=== PATIENT | male | born 1935 | race Caucasian/White ===

== ENCOUNTER 2016-12-08 16:28 | Emergency (ER) | payer MEDICARE ==
[~2016-12-08 16:28] MED LIST: ACET325T51 PO; CHOL10008 PO; COU5 PO; CYAN250014 PO; CYAN500 SQ; LOPE2CAP PO; NITR0.4T SL; SMV40T PO; TEN50 PO
[2016-12-08 16:48] VITALS: BP 130/79; PULSE 83; RESP 18; O2SAT 98
[2016-12-08 17:31] LABS: BASOPHILS % (AUTO) 0.2 % (0-3); EOSINOPHILS % (AUTO) 0.7 % (0-5); MONOCYTES % (AUTO) 9.1 % (4-12); Mean Corpuscular Hemoglobin 32.3 pg (27.0-35.0); NEUTROPHILS % (AUTO) 80.2 % (40-74); Platelet Count 185 bil/L (150-400)
--- NOTE | 2016-12-08 18:23 | ED.REPORT ---
HPI-Extremity Problem Upper Date of Service Dec 08, 2016 ED Provider: Mark Soria MD Pt is an 81 year old male on Warfarin with a past medical history notable for hypertension, CAD, atrial fibrillation, and peripheral vascular disease s/p recent unspecified lower extremity vascular surgeries (11/2016) who presents to the ED with right hand bruising and edema onset three days ago. The patient also reports right hand pain and swelling as well as an episode of chills two evenings ago. He denies fever, numbness, decreased ROM, injury/trauma, or other symptoms. The patient was seen at Urgent Care two days ago and was subsequently discharged with cephalexin, which he has taken with no relief. Redness has not spread but has not resolved yet either. Nursing Notes Stated Complaint: INFECTED HAND AFTER SURGERY Chief Complaint: Extremity Trauma Nursing Notes Reviewed: Yes Allergies: Coded Allergies: atorvastatin (Verified Allergy, Unknown, 08/10/16) Scheduled Atenolol-Expunged Drug, Do Not Renew! (Atenolol-Expunged Drug, Do Not Renew!) 50 Mg Tablet 50 MG PO BID Cholecalciferol-Expunged Drug, Do Not Renew! (Vitamin D3-Expunged Drug, Do Not Renew!) 1,000 Unit Tab.chew 2,000 UNIT PO DAILY Cyanocobalamin (Vitamin B12) 500 Mcg Tablet 1,000 MCG SQ Monthly Loperamide (Loperamide) 2 Mg Capsule 2 MG PO DAILY Simvastatin-Expunged Drug, Choose New Med! (Simvastatin-Expunged Drug, Choose New Med!) 40 Mg Tablet 40 MG PO HS INPATIENT MAX DOSE 40 MG Warfarin Inactive Drug Do Not Use (Coumadin Inactive Drug Do Not Use) 5 Mg Tablet 5 MG PO WAR Scheduled PRN Acetaminophen (Acetaminophen) 325 Mg Tablet 325 MG PO Q4H PRN PRN For Fever Nitroglycerin SL (Nitrostat) 0.4 Mg Tab.subl 0.4 MG SL Q5MIN PRN PRN For Chest Pain Miscellaneous Medications Cyanocobalamin (Vitamin B-12) (Vitamin B12) 2,500 Mcg Tab.chew 2,500 MCG PO General Time Seen by MD: 18:21 Chief Complaint Other (Right Hand Bruising) Hx Obtained From: Patient Arrived By: Walk-in Onset Occurred: 3 days ago Symptom Duration: Since onset Location: : Hand right Quality: Painful Severity: Current: Moderate Severity: Maximum: Moderate Pertinent Negative: Relieved by nothing Immunizations: Unknown Recent Healthcare: Recent doctor visit Past Medical History Past Medical History 1. Hypertension. 2. Hyperlipidemia. 3. Atrial fib, on anticoagulation. 4. Coronary artery disease with [place] in 1990 in which he underwent PTCA, but did not have a stent at that time. 5. Tobacco abuse. 6. Peripheral vascular disease 7. Hernia Past Surgical History 1. Abdominal aortic aneurysm repair in 2003. 2. Angioplasty in 1990. 3. Tonsillectomy. 4. Kidney stone status post extraction on March [address] Bauman. 5. TURP. 6. Right breast cyst. 7. Skin cancer excision. 8. Left orchiectomy. 9. Unspecified vascular surgeries, bilateral lower extremities (11/2016) Smoking History Light Tobacco Smoker Social History Other Social History: Good social support Ambulatory Status Independent Review of Systems Review of Systems Note: + Right hand bruising - Decreased hand ROM Constitutional: Reports: Chills, Denies: Fever Musculoskeletal: Reports: Extremity pain (Right hand), Extremity swelling ( Right hand) Neurologic: Denies: Numbness Complete sys rev & neg: except as marked. Respiratory: Denies: Non-productive cough, Shortness of breath GI: Denies: Diarrhea, Vomiting Physical Exam Initial Vital Signs Vital Signs (First) Date Time Temp Pulse Resp B/P Pulse Ox O2 Delivery O2 Flow Rate FiO2 12/08/16 16:48 37 83 18 130/79 98 Room Air Initial VS: Reviewed Head / Eyes: Atraumatic, Normocephalic ENT: Conjunctiva normal, No scleral icterus Neurologic: Alert, Oriented Psychiatric: Mood/affect normal, Behavior normal General/Constitutional: Awake, Alert Respiratory / Chest: Breath sounds NL, Breath sounds = bilat, No respiratory distress Cardiovascular: Heart rate NL, Regular rhythm, Heart sounds NL, No gallop, No murmurs, No rubs Upper Extremity / MS: Neurologic intact, Vascular intact (Good radial pulses right hand) Left upper extremity normal Right forearm compartments soft Wrist / Hand: Atraumatic, Neurologic intact, Vascular intact Right Hand: Positive: Swelling present... (Over dorsum ) Trauma / Burn / Environmental: Positive: Ecchymosis (Over dorsum of right hand) Edema involving the second through fifth finger of right hand with petechia present over fingertips Good cap refill Right hand without induration, warmth, or other signs of infection Skin: Warm, Dry Abdomen: Soft, Non-tender, No distention Lower Extremity / Pelvis / MS: No deformity Well healing vascular surgery scar from groin to right tibial region. Area is well healed without erythema, warmth, or swelling Interpretation & Diagnostics Lab Results Interpretation Result Diagram: 12/08/16 1723 12/08/16 1723 Test 12/08/16 17:23 White Blood Count 12.8th/mm3 (3.8-10.1) Red Blood Count 4.09mil/mm3 (4.40-5.80) Hemoglobin 13.2g/dL (13.8-17.2) Hematocrit 41.3% (41.0-50.0) Mean Corpuscular Volume 101.0fL (81-100) Mean Corpuscular Hemoglobin 32.3pg (27.0-35.0) Mean Corpuscular Hemoglobin Concent 32.0% (32.0-37.0) Red Cell Distribution Width 15.3% (12.3-15.4) Platelet Count 185bil/L (150-400) Neutrophils (%) (Auto) 80.2% (40-74) Lymphocytes (%) (Auto) 9.6% (14-46) Monocytes (%) (Auto) 9.1% (4-12) Eosinophils (%) (Auto) 0.7% (0-5) Basophils (%) (Auto) 0.2% (0-3) Prothrombin Time 20.3sec (8.1-12.5) Prothromb Time International Ratio 1.87ratio Sodium Level 139mEq/L (134-144) Potassium Level 3.3mEq/L (3.5-5.2) Chloride Level 106mEq/L (97-108) Carbon Dioxide Level 18mmol/L (18-29) Blood Urea Nitrogen 32mg/dL (8-27) Creatinine 1.08mg/dL (0.76-1.27) Estimat Glomerular Filtration Rate 70mL/min (>59) Glucose Level 110mg/dL (60-99) Lactic Acid Level 1.3mmol/L (0.4-2.0) Calcium Level 9.5mg/dL (8.5-10.1) Total Bilirubin 1.0mg/dL (0.0-1.2) Aspartate Amino Transf (AST/SGOT) 12U/L (0-50) Alanine Aminotransferase (ALT/SGPT) 8U/L (0-44) Alkaline Phosphatase 104U/L (25-160) Total Protein 6.5g/dL (6.4-8.4) Albumin 3.3g/dL (3.4-5.0) Hold Bruce Top Tube Received (Received) Re-Eval/Medical Decision Med Decision/Clinical Course Pt is an 81 year old male on Warfarin with a past medical history notable for hypertension, CAD, atrial fibrillation, and peripheral vascular disease s/p recent unspecified lower extremity vascular surgeries (11/2016) who presents to the ED with right hand bruising and edema onset three days ago. The patient also reports right hand pain and swelling as well as an episode of chills two evenings ago. He denies fever, numbness, decreased ROM, injury/trauma, or other symptoms. The patient was seen at Urgent Care two days ago and was subsequently discharged with cephalexin, which he has taken with no relief. Redness has not spread but has not resolved yet either. To the emergency department the patient is afebrile, comfortable and in no apparent distress. Examination reveals soft pitting edema of his right hand with ecchymosis overlying the dorsum of his right hand and some mild associated swelling. No induration, purulence, approximately streaking erythema or sign suggestive of infection. Labs: CBC: leukocytosis 12.8 Hematocrit 41.3 Potassium 3.3 BUN 32, elevated from prior of 18 Creatinine 1.08, elevated from prior of .74 Lactate 1.3 INR 1.87 Overall presentation seems most consistent with traumatic ecchymosis of the right hand in the setting of Coumadin therapy. I suspect that he is having accumulation of edema in his hand due to gravity. My clinical suspicion at this time for acute infectious process is very low. On rollover, he has taken Keflex without any response. He is afebrile and nontoxic in appearance. The overall presentation is clinically not very suggestive of DVT of the upper extremity. Moreover, he is already on Coumadin which would be the treatment should he have a DVT. I feel that the appropriate course of management at this time is to elevate the extremity and monitor for any progressive or worsening symptoms. I had a long discussion about this with the patient and his daughter as well as a long telephone conversation about this with the patient's son. They are comfortable with this plan. Follow-up with her primary care physician and return right away for any progressive or worsening symptoms. Prior to discharge follow-up and return precautions were reviewed in detail with the patient who verbalized understanding and agreement with the plan. The patient was discharged in stable condition. Source of Hx: Old records Re-Evaluation/Progress : Time of Eval: 20:25 Patient Status: Condition improved Re-Evaluation/Progress Note: Discussed patient's case in depth with his son, who is a nurse. Discussed with patient lab results, diagnosis, and plan for discharge. Follow-up and return to the ER instructions given. Patient agrees with plan for care and all questions were addressed. Counseled Regarding: Diagnosis, Lab results, Need for follow-up, When/why to return to ED Discharge & Departure Impression: Primary Impression: Traumatic ecchymosis of right hand Encounter type: initial encounter Qualified Code: S60.221A - Contusion of right hand, initial encounter Additional Impressions: Edema of hand History of peripheral vascular disease Anticoagulated on Coumadin Disposition: Home Discharge Condition All VS Reviewed: Yes Condition: Improved Additional Instructions: Thank you for seeking care at the emergency room. It is difficult for us to make definitive diagnoses in the ED but we believe that you are experiencing bleeding in the tissues of your hand due to being on Coumadin. Our primary goal today in the ED was to evaluate you for any life-threatening conditions. Your evaluation was reassuring. Her INR today is 1.87 so just a tiny bit below target. Elevate your right hand as much as possible. This will help relieve the swelling. You may complete the course of Keflex that was prescribed though I do not see any signs of an infection in your hand. You should follow-up with your primary doctor in the next week. You should return to the ED immediately if you develop increased swelling swelling, redness, numbness, inability to move fingers, fevers, vomiting, cough , shortness of breath, chest pain, lightheadedness, weakness or any other concerning signs or symptoms. Thank you for letting us partake in your care today. Referrals: Denton Travis DO (PCP) Scribe Attestation Portions of this note were transcribed by Marley Chew. I, Dr. Soria, personally performed the history, physical exam, and medical decision-making; I reviewed and confirmed the accuracy of the information in the transcribed note. Signed by: Ángel Bowling, 12/08/2016, 23:55 copies to: Denton Travis Beck O MD Dec 08, 2016 18:23 MARLEY CHEW Dec 08, 2016 19:46
[2016-12-08 20:07] LABS: INR 1.87 ratio
== END 2016-12-08 20:58 | disposition home or self-care (01) ==
LOC: SED 16:28
DX: S60.221A Contusion of right hand, initial encounter (principal); T45.515A Adverse effect of anticoagulants, initial encounter; X58.XXXA Exposure to other specified factors, initial encounter; Y92.9 Unspecified place or not applicable; Y93.9 Activity, unspecified; Y99.9 Unspecified external cause status; D68.32 Hemorrhagic disorder due to extrinsic circulating anticoagulants; R60.0 Localized edema; I73.9 Peripheral vascular disease, unspecified; I10 Essential (primary) hypertension; I25.10 Atherosclerotic heart disease of native coronary artery without angina pectoris; I48.91 Unspecified atrial fibrillation; E78.5 Hyperlipidemia, unspecified; I25.2 Old myocardial infarction; F17.200 Nicotine dependence, unspecified, uncomplicated; Z98.890 Other specified postprocedural states; Z79.01 Long term (current) use of anticoagulants; Z88.8 Allergy status to other drugs, medicaments and biological substances

== ENCOUNTER 2016-12-09 15:51 | Emergency (ER) | payer MEDICARE ==
[~2016-12-09] VITALS: Ht 177.8 cm; Wt 68.2 kg
[2016-12-09 15:53] VITALS: BP 145/83; PULSE 78; RESP 14; O2SAT 98
--- NOTE | 2016-12-09 17:27 | ED.REPORT ---
HPI-Extremity Problem Upper Date of Service Dec 09, 2016 ED Provider: Jason Walter MD Pleasant 81-year-old gentleman presents with swelling of his right upper extremity, namely his right hand, wrist, along with warmth and redness. He was seen in the emergency department for same thing less than 24 hours before, with instructions to return if it worsened. Today he is accompanied by his daughter with pictures on her cell phone showing a increased swelling in his right hand and wrist, he is also complaining of increased pain along his dorsal metatarsal phalangeal joints. He denies any fevers, chills, pain in his elbow, he is unable to make a fist due to the tightness of his skin over the joints of his hand. He denies any chest pain, shortness of breath. He does have a history of one month ago having right lower extremity arterial bypass performed, which she reports has been healing well. Both him and his daughter are unsure if that is related to current presentation. He is on warfarin, his INR at yesterday's emergency room visit was subtherapeutic at 1.8. The redness and swelling started on Tuesday around the area of the previous venipuncture and described as sharp pain around the area. On Tuesday he was seen at urgent care and was given a prescription of cephalexin 500 mg every 12 hours he has been taking. He is accompanied today by his daughter who is voicing frustration that despite visiting now 2 different doctors his symptoms have not been improving. Nursing Notes Stated Complaint: POST SURGERY COMPLICATIONS Chief Complaint: Extremity Trauma Nursing Notes Reviewed: Yes Allergies: Coded Allergies: atorvastatin (Verified Allergy, Unknown, 12/09/16) Scheduled Atenolol-Expunged Drug, Do Not Renew! (Atenolol-Expunged Drug, Do Not Renew!) 50 Mg Tablet 50 MG PO BID Cholecalciferol-Expunged Drug, Do Not Renew! (Vitamin D3-Expunged Drug, Do Not Renew!) 1,000 Unit Tab.chew 2,000 UNIT PO DAILY Cyanocobalamin (Vitamin B12) 500 Mcg Tablet 1,000 MCG SQ Monthly Loperamide (Loperamide) 2 Mg Capsule 2 MG PO DAILY Simvastatin-Expunged Drug, Choose New Med! (Simvastatin-Expunged Drug, Choose New Med!) 40 Mg Tablet 40 MG PO HS INPATIENT MAX DOSE 40 MG Warfarin Inactive Drug Do Not Use (Coumadin Inactive Drug Do Not Use) 5 Mg Tablet 5 MG PO WAR Scheduled PRN Acetaminophen (Acetaminophen) 325 Mg Tablet 325 MG PO Q4H PRN PRN For Fever Nitroglycerin SL (Nitrostat) 0.4 Mg Tab.subl 0.4 MG SL Q5MIN PRN PRN For Chest Pain Miscellaneous Medications Cyanocobalamin (Vitamin B-12) (Vitamin B12) 2,500 Mcg Tab.chew 2,500 MCG PO General Time Seen by MD: 16:26 Chief Complaint Arm injury left Similar Sx Previous: Yes Past Medical History Past Medical History 1. Hypertension. 2. Hyperlipidemia. 3. Atrial fib, on anticoagulation. 4. Coronary artery disease with [place] in 1990 in which he underwent PTCA, but did not have a stent at that time. 5. Tobacco abuse. 6. Peripheral vascular disease 7. Hernia Past Surgical History 1. Abdominal aortic aneurysm repair in 2003. 2. Angioplasty in 1990. 3. Tonsillectomy. 4. Kidney stone status post extraction on March [address] Bauman. 5. TURP. 6. Right breast cyst. 7. Skin cancer excision. 8. Left orchiectomy. 9. Unspecified vascular surgeries, bilateral lower extremities (11/2016) Smoking History Light Tobacco Smoker Social History Other Social History: Good social support Ambulatory Status Independent Review of Systems Complete sys rev & neg: except as marked. Physical Exam General: Alert, sitting in wheelchair, no apparent distress. HEENT: Normocephalic, atraumatic, EOMI grossly, or dentition, mucous membranes moist, clear copious nasal discharge Cardiovascular: Irregularly irregular, no clicks murmurs rubs, peripheral pulses 2/4 equal bilaterally Pulmonary: Clear to auscultation bilaterally, no W/R/R. Abdominal: Soft to palpation, bowel sounds present 4, no hepatosplenomegaly. Negative rebound. Extremities: Right upper extremity shows marked swelling right hand wrist, dependent pitting edema to the level of the elbow, with overlying ecchymosis. There is tenderness and warmth to the right wrist, neurovascularly intact distal right digits, unable to make a fist with his right hand, skin is taut. There is no purulence, weeping, or discharge. There is a ring of redness almost appears as telangiectasia circumferential to the fourth right digit just distal to the MCP. Neuro: Neurologically grossly intact, strength is equal bilaterally upper and lower extremities. MSK: Patient is in a wheelchair, he is able to move his upper extremities on his own volition. Strength in his left upper extremity is 5 out of 5, right upper extremity evaluation was blunted by pain in his wrist. Initial Vital Signs Vital Signs (First) Date Time Temp Pulse Resp B/P Pulse Ox O2 Delivery O2 Flow Rate FiO2 12/09/16 15:53 36.2 78 14 145/83 98 Room Air Initial VS: Reviewed Interpretation & Diagnostics Lab Results Interpretation Result Diagram: 12/09/16 1815 12/09/16 181 Test 12/09/16 18:15 White Blood Count 9.9th/mm3 (3.8-10.1) Red Blood Count 4.09mil/mm3 (4.40-5.80) Hemoglobin 13.5g/dL (13.8-17.2) Hematocrit 41.3% (41.0-50.0) Mean Corpuscular Volume 101.0fL (81-100) Mean Corpuscular Hemoglobin 33.0pg (27.0-35.0) Mean Corpuscular Hemoglobin Concent 32.7% (32.0-37.0) Red Cell Distribution Width 15.1% (12.3-15.4) Platelet Count 191bil/L (150-400) Neutrophils (%) (Auto) 74.4% (40-74) Lymphocytes (%) (Auto) 12.4% (14-46) Monocytes (%) (Auto) 12.1% (4-12) Eosinophils (%) (Auto) 0.7% (0-5) Basophils (%) (Auto) 0.2% (0-3) Erythrocyte Sedimentation Rate 20mm/hr (0-30) Prothrombin Time 21.1sec (8.1-12.5) Prothromb Time International Ratio 1.95ratio Sodium Level 143mEq/L (134-144) Potassium Level 3.6mEq/L (3.5-5.2) Chloride Level 108mEq/L (97-108) Carbon Dioxide Level 22mmol/L (18-29) Blood Urea Nitrogen 29mg/dL (8-27) Creatinine 1.17mg/dL (0.76-1.27) Estimat Glomerular Filtration Rate 64mL/min (>59) Glucose Level 90mg/dL (60-99) Calcium Level 9.6mg/dL (8.5-10.1) C-Reactive Protein 6.1mg/dL (0.0-0.5) Hold Bruce Top Tube Received (Received) Lab Results Interpretation: Elevated CRP X-Ray Interpretation Xray Interpretation: Right wrist x-ray IMPRESSION: 1. No definite radiographic evidence of osteomyelitis. If clinical concern persists, recommend further evaluation with MRI. 2. Moderate degeneration of the 1st carpometacarpal joint. Dictated by: Marco Avitia M.D. on 12/09/2016 at 17:44 Right hand x-ray IMPRESSION: 1. No definite radiographic evidence of osteomyelitis. If clinical concern persists, recommend further evaluation with MRI. Dictated by: Marco Avitia M.D. on 12/09/2016 at 17:42 US Soft Tissue/Musculoskeletal Right upper extremity venous Doppler ultrasound IMPRESSION: 1. No evidence of deep venous thrombosis in the right upper extremity. Dictated by: Marco Avitia M.D. on 12/09/2016 at 18:48 Re-Eval/Medical Decision Med Decision/Clinical Course Reviewed previous ER documentation as well as urgent care record. Spoke with Dr. Soria regarding his evaluation and impression yesterday. Daughter was able to produce pictures on her cell phone showing that swelling has doubled since yesterday's ER visit. Concern for DVT, osteomyelitis, cellulitis, and less likely necrotizing fasciitis prompted the evaluation with venous ultrasound , x-ray of wrist and hand, and repeat labs looking for worsening infection and signs of inflammation. All imaging studies return without pathology identified , and only an elevated CRP returned on chemistries. Based on the progression of the disease, and lack of response to current antibiotics, decision was made to send the patient home on oral clindamycin and return in 24 hours for reevaluation. Area of redness was demarcated on his arm with a skin marker. Patient and daughter of patient stated understanding, questions were answered, and red flag symptoms were discussed for him to return earlier than tomorrow afternoon. Discharge & Departure Impression: Primary Impression: Cellulitis of hand Additional Impression: Cellulitis of arm, right Disposition: Home Discharge Condition All VS Reviewed: Yes Condition: Critical Patient Instructions: Cellulitis (ED) Additional Instructions: Review of workup: An ultrasound was performed to evaluate for any blood clots in the right upper extremity, no blood clots were seen, flow was normal thin and returning from distal right upper extremity. X-ray was performed of hand and wrist to evaluate for signs of osteomyelitis, underlying neck tight wheezing fasciitis, there is no lucency in the bones nor any signs of air in the soft tissue suggesting infection of the bone or underlying soft tissue. Laboratory results: Evaluated for infection, white blood cell count was normal, blood chemistries were normal, ESR was normal, CRP was elevated to 6.1. INR was 1.9. Above labs and evaluation do not support the diagnosis of deep vein thrombosis, osteomyelitis, excising fasciitis, and clinical presentation does not support gout. At this point the leading diagnosis continues to be cellulitis given the disease progression and physical exam findings, namely warm, swollen, red skin with ascending edema and redness without abrupt definitive line of demarcation. We are going to change the antibiotic to clindamycin 300 mg 4 times a day by mouth. You have been given a dose of this while you are in the emergency department. Please return to the emergency department tomorrow afternoon roughly after 3 PM for reevaluation. We have drawn a line on your arm demarcating the level of infection, if at the time of recheck the redness has proceeded past that line we will then recommend a more aggressive approach such as IV Antibiotics. If before tomorrow afternoon experience any worsening of symptoms, fever, chills, lightheadedness, dizziness, weakness, substantial tiredness/sleepiness, please do not hesitate to return to the emergency department before tomorrow afternoon. I, Dr. Aurelio Lam DO, will be present tomorrow afternoon and will be happy to do the reevaluation. Referrals: Denton Travis DO (PCP) Attending Statement I personally examined this patient with Dr Marroquin on 12/09. agree with above. copies to: Denton Travis Noah M DO Dec 09, 2016 17:05 Jason Walter MD Dec 09, 2016 20:34
--- NOTE | 2016-12-09 17:46 | DRSVH ---
PROCEDURE: X-RAY RIGHT HAND, TWO VIEWS ([id number]) INDICATIONS: Pain and swelling of the hand and wrist. Evaluate for possible osteomyelitis TECHNIQUE: 2 views of the hand(s) acquired. COMPARISON: [facility], CR, XR WRIST 2VW RT, 12/09/2016, 17:13. FINDINGS: Bones: No fractures or dislocations. No discrete bony erosions or definite periosteal reaction. Th ere is [id number] joint space narrowing and subchondral sclerosis at the 1st carpometacarpal kavya int. There is also mild narrowing of the radiocarpal joint. No suspicious bony lesions. Soft tissues: There are mild periarticular calcifications adjacent to the 1st carpometacarpal joint. IMPRESSION: 1. No definite radiographic evidence of osteomyelitis. If clinical concern persists, recommend furt her evaluation with MRI. Dictated by: Marco Avitia M.D. on 12/09/2016 at 17:42 Approved by: Marco Avitia M.D. on 12/09/2016 at 17:44
--- NOTE | 2016-12-09 17:48 | DRSVH ---
PROCEDURE: X-RAY RIGHT WRIST, TWO VIEWS ([id number]) INDICATIONS: 81 year-old male with history of pain and swelling of the right hand and wrist presentin g for evaluation of possible osteomyelitis. TECHNIQUE: 2 views of the wrist were acquired. COMPARISON: [facility], CR, XR HAND 2VW RT, 12/09/2016, 17:13. FINDINGS: Bones: No definite fractures or dislocations. No discrete bony erosions or periosteal reaction. Th ere is moderate degeneration of the 1st carpometacarpal joint. There is also mild narrowing of the r adiocarpal joint. Soft tissues: There are mild periarticular calcifications at the 1st carpometacarpal joint. IMPRESSION: 1. No definite radiographic evidence of osteomyelitis. If clinical concern persists, recommend furt her evaluation with MRI. 2. Moderate degeneration of the 1st carpometacarpal joint. Dictated by: Marco Avitia M.D. on 12/09/2016 at 17:44 Approved by: Marco Avitia M.D. on 12/09/2016 at 17:46
[2016-12-09 18:15] VITALS: BP 142/88; PULSE 77; RESP 16; O2SAT 98
[2016-12-09 18:23] LABS: BASOPHILS % (AUTO) 0.2 % (0-3); EOSINOPHILS % (AUTO) 0.7 % (0-5); MONOCYTES % (AUTO) 12.1 % (4-12); NEUTROPHILS % (AUTO) 74.4 % (40-74); Platelet Count 191 bil/L (150-400)
[2016-12-09 18:36] LABS: INR 1.95 ratio
--- NOTE | 2016-12-09 18:50 | DRSVH ---
PROCEDURE: US VENOUS ARM DUPLEX UNILATERAL, RIGHT INDICATIONS: Right upper extremity swelling, ecchymosis, and pain. TECHNIQUE: Real-time imaging, as well as color and pulse Doppler interrogation, was performed of the right upper extremity deep veins from the inferior neck to the antecubital fossa. COMPARISON: None. FINDINGS: The internal jugular vein, visualized portions of the subclavian vein, axillary, and brach ial veins are free of intraluminal thrombus. Where physically possible, the veins are normally compr essible. Color and pulse Doppler demonstrate normal intraluminal flow, with expected phasicity and p ulsatility. Additional scanning of the cephalic and basilic veins of the superficial system demonstr ate normal compressibility, without thrombus. IMPRESSION: 1. No evidence of deep venous thrombosis in the right upper extremity. Dictated by: Marco Avitia M.D. on 12/09/2016 at 18:48 Approved by: Marco Avitia M.D. on 12/09/2016 at 18:48
[2016-12-09 18:54] LABS: ERYTHROCYTE SEDIMENTATION RATE 20 mm/hr (0-30)
[2016-12-09 19:45] VITALS: BP 154/92; PULSE 73; RESP 18; O2SAT 96
[2016-12-09] MEDS ORDERED: _Clindamycin 150 mg Capsule PO SCH (21:30)
== END 2016-12-09 19:46 | disposition home or self-care (01) ==
LOC: SED 15:51
DX: L03.113 Cellulitis of right upper limb (principal); I10 Essential (primary) hypertension; E78.5 Hyperlipidemia, unspecified; I48.91 Unspecified atrial fibrillation; I25.10 Atherosclerotic heart disease of native coronary artery without angina pectoris; F17.200 Nicotine dependence, unspecified, uncomplicated; Z88.8 Allergy status to other drugs, medicaments and biological substances; Z79.01 Long term (current) use of anticoagulants; Z98.890 Other specified postprocedural states

== ENCOUNTER 2016-12-21 15:20 | Inpatient (IN) | payer MEDICARE ==
[~2016-12-21] VITALS: Ht 177.8 cm; Wt 70.4 kg
[2016-12-21] MEDS: cefTRIAXone Inj 2,000 MG in Dextrose 5% Minibag Plus 50 ML IV SCH (08:30)
[2016-12-21 15:23] VITALS: BP 142/80; PULSE 72; RESP 16; O2SAT 97
--- NOTE | 2016-12-21 15:37 | ED.REPORT ---
HPI-Extremity Problem Upper Date of Service Dec 21, 2016 ED Provider: Mark Soria MD Pt is an 81 year old male on Warfarin with a past medical history notable for hypertension, CAD, atrial fibrillation, and peripheral vascular disease s/p recent unspecified lower extremity vascular surgeries (11/2016) who presents to the ED with right hand swelling and redness. The patient has had several weeks of swelling of his right upper extremity with redness and pitting edema. He was initially seen by myself and his symptoms were thought to be related to edema and bleeding from an infiltrated IV. He represented several days later and had a further workup that included a duplex of his right upper extremity that showed no evidence of DVT. It was thought it was likely related to cellulitis. He was already treated with cephalexin, and at that time his antibiotics were broadened to Clindamycin. He took his last dose last night. He was sent back today by his primary care physician. The patient believes his symptoms improved with the Clindamycin. 3 days ago he noticed a "lump" on his hand that has drained some purulent material. He most recently had an MRI of his forearm 1 day ago which demonstrated subcutaneous edema consistent with cellulitis and no evidence of osteomyelitis. Nursing Notes Stated Complaint: INFECTION Chief Complaint: Extremity Trauma Nursing Notes Reviewed: Yes Allergies: Coded Allergies: Sulfa (Sulfonamide Antibiotics) (Verified Allergy, Unknown, 12/21/16) atorvastatin (Verified Allergy, Unknown, 12/21/16) Scheduled Aspirin (Aspirin) 325 Mg Tablet 325 MG PO DAILY Atenolol (Atenolol) 25 Mg Tablet 25 MG PO BID Cholecalciferol (Vitamin D3) (Vitamin D3) 2,000 Unit Capsule 2,000 UNIT PO DAILY Cyanocobalamin (Cyanocobalamin Injection) 1,000 Mcg/1 Ml Vial 1 DOSE INJ every month Melatonin/Pyridoxine (Melatonin 5 mg Tablet) 1 Each Tablet 1 EACH PO HS Simvastatin (Simvastatin) 40 Mg Tablet 40 MG PO HS Warfarin Sodium (Warfarin Sodium) 2.5 Mg Tablet 2.5 MG PO ,,,, Warfarin Sodium (Warfarin Sodium) 2.5 Mg Tablet 1.25 MG PO tuesday and tuesday Scheduled PRN Acetaminophen (Acetaminophen) 325 Mg Tablet 325-650 MG PO DAILY PRN PRN For Pain Loperamide (Loperamide) 2 Mg Capsule 2 MG PO DAILY PRN PRN For Diarrhea or Loose Stool Nitroglycerin SL (Nitrostat) 0.4 Mg Tab.subl 0.4 MG SL Q5MIN PRN PRN For Chest Pain General Time Seen by MD: 15:35 Chief Complaint Hand injury right Hx Obtained From: Patient Arrived By: Walk-in Onset Occurred: More than a week ago... Symptom Duration: Since onset Location: : Hand right Quality: Painful Severity: Current: Moderate Severity: Maximum: Moderate Recent Healthcare: No recent hospitalization, Recent doctor visit Similar Sx Previous: Yes Past Medical History Past Medical History 1. Hypertension. 2. Hyperlipidemia. 3. Atrial fib, on anticoagulation. 4. Coronary artery disease with [place] in 1990 in which he underwent PTCA, but did not have a stent at that time. 5. Tobacco abuse. 6. Peripheral vascular disease 7. Hernia Past Surgical History 1. Abdominal aortic aneurysm repair in 2003. 2. Angioplasty in 1990. 3. Tonsillectomy. 4. Kidney stone status post extraction on March [address] Bauman. 5. TURP. 6. Right breast cyst. 7. Skin cancer excision. 8. Left orchiectomy. 9. Unspecified vascular surgeries, bilateral lower extremities (11/2016) Family History Noncontributory Smoking History Light Tobacco Smoker Social History Other Social History: Good social support, Local resident Ambulatory Status Independent Review of Systems Musculoskeletal: Reports: Extremity pain, Extremity swelling Skin: Reports Rash Complete sys rev & neg: except as marked. Physical Exam Initial Vital Signs Vital Signs (First) Date Time Temp Pulse Resp B/P Pulse Ox O2 Delivery O2 Flow Rate FiO2 17 15:23 36.3 72 16 142/80 97 Room Air Initial VS: Reviewed Head / Eyes: Atraumatic, Normocephalic, PERRL ENT: Mucous membranes moist, Conjunctiva normal, No scleral icterus Neck: Supple, Non-tender, Full range of motion Respiratory: Breath sounds normal, Clear to auscultation, No respiratory distress Cardiovascular: Regular rate & rhythm, Heart sounds normal, Intact distal pulses Abdomen / GI: Soft, Non-tender, No guarding, No rebound, No distention Lower Extremities: Vascular intact, Neuro intact, No swelling, No tenderness Skin: Warm, Dry, No cyanosis Neurologic: Alert, Oriented, Nonfocal Psychiatric: Mood/affect normal, Behavior normal, Normal thought content General/Constitutional: Awake, Alert, Cooperative Wrist / Hand: Neurologic intact, Vascular intact He has some erythema and induration about the dorsum of his right hand. There are several areas where there is superficial skin breakdown with crusting and purulence. There is no swelling or edema of his fingers. He has good cap refill and normal pulses. He is able to fully flex and extend his fingers but he does report tenderness at the dorsum of his hand when he does this. Compared to when I last saw him, he no longer has swelling or redness of his forearm, this has completely subsided. Interpretation & Diagnostics Lab Results Interpretation Result Diagram: 12/21/16 1637 12/21/16 1637 Test 12/21/16 16:37 White Blood Count 9.3th/mm3 (3.8-10.1) Red Blood Count 4.03mil/mm3 (4.40-5.80) Hemoglobin 13.1g/dL (13.8-17.2) Hematocrit 40.7% (41.0-50.0) Mean Corpuscular Volume 101.0fL (81-100) Mean Corpuscular Hemoglobin 32.5pg (27.0-35.0) Mean Corpuscular Hemoglobin Concent 32.2% (32.0-37.0) Red Cell Distribution Width 15.4% (12.3-15.4) Platelet Count 343bil/L (150-400) Neutrophils (%) (Auto) 72.9% (40-74) Lymphocytes (%) (Auto) 15.6% (14-46) Monocytes (%) (Auto) 10.4% (4-12) Eosinophils (%) (Auto) 0.4% (0-5) Basophils (%) (Auto) 0.5% (0-3) Erythrocyte Sedimentation Rate 10mm/hr (0-30) Prothrombin Time 35.5sec (8.1-12.5) Prothromb Time International Ratio 3.24ratio Sodium Level 142mEq/L (134-144) Potassium Level 4.1mEq/L (3.5-5.2) Chloride Level 107mEq/L (97-108) Carbon Dioxide Level 21mmol/L (18-29) Blood Urea Nitrogen 23mg/dL (8-27) Creatinine 1.08mg/dL (0.76-1.27) Estimat Glomerular Filtration Rate 70mL/min (>59) Glucose Level 93mg/dL (60-99) Lactic Acid Level 1.2mmol/L (0.4-2.0) Calcium Level 9.5mg/dL (8.5-10.1) Total Bilirubin 0.6mg/dL (0.0-1.2) Aspartate Amino Transf (AST/SGOT) 13U/L (0-50) Alanine Aminotransferase (ALT/SGPT) 9U/L (0-44) Alkaline Phosphatase 110U/L (25-160) C-Reactive Protein 0.4mg/dL (0.0-0.5) Total Protein 6.4g/dL (6.4-8.4) Albumin 3.3g/dL (3.4-5.0) ECG Interpretation ECG Interpretation: Atrial fibrillation with a rate of 79 bpm Normal axis Nonspecific IVCD No acute ST segment changes No acute T wave abnormalities No prior available for comparison Time: 16:48 Interpreted by: ED physician Re-Eval/Medical Decision Med Decision/Clinical Course Pt is an 81 year old male on Warfarin with a past medical history notable for hypertension, CAD, atrial fibrillation, and peripheral vascular disease s/p recent unspecified lower extremity vascular surgeries (11/2016) who presents to the ED with right hand swelling and redness. The patient has had several weeks of swelling of his right upper extremity with redness and pitting edema. He was initially seen by myself and his symptoms were thought to be related to edema and bleeding from an infiltrated IV. He re-presented several days later and had a further workup that included a duplex of his right upper extremity that showed no evidence of DVT. It was thought it was likely related to cellulitis. He was already treated with cephalexin, and at that time his antibiotics were broadened to Clindamycin. He took his last dose last night. He was sent back today by his primary care physician. The patient believes his symptoms improved with the Clindamycin. 3 days ago he noticed a "lump" on his hand that has drained some purulent material. He most recently had an MRI of his forearm 1 day ago which demonstrated subcutaneous edema consistent with cellulitis and no evidence of osteomyelitis. Here in the emergency department the patient is afebrile, hemodynamically stable with examination as above. Clinically this does not assemble synovitis of the patient does have some fluctuance about the dorsum of the hands suggestive of localized abscess or fluid collection. Patient was discussed with Dr. Cisneros. (Orthopedic surgery) who agrees with this does not resemble final synovitis. He recommends bedside I&D which was performed by him, IV antibiotics, and hospital admission. Treated with ceftriaxone and vancomycin. Patient was discussed with admitting hospitalist and transferred in stable condition. Source of Hx: Old records Re-Evaluation/Progress : Time of Eval: 16:18 Re-Evaluation/Progress Note: Discussed plan for workup and orthopedic consult with the patient. Consultation #1: Referral / Consult Name: Abdullahi Cisneros DO Consulted With: Orthopedic Call Returned at: 16:28 Sawdust Drier: Will see patient Consultation #2: Referral / Consult Name: Abdullahi Cisneros DO Consulted With: Orthopedic Call Returned at: 16:50 Note: He would like the patient admitted to the hospital. Consultation #3: Referral / Consult Name: Pavel Figueroa DO Consulted With: Hospitalist Call Returned at: 17:40 Sawdust Drier: Will see patient, Agrees with eval, Agrees with plan, Accepts admit Counseled Regarding: Diagnosis, Lab results, Need for admission Discharge & Departure Impression: Primary Impression: Cellulitis of hand Additional Impression: Abscess of hand, right Disposition: ADMITTED TO HOSPITAL Discharge Condition All VS Reviewed: Yes Condition: Stable Referrals: Denton Travis DO (PCP) Ángel Attestation Portions of this note were transcribed by Simoan Denny. I, Dr. Soria personally performed the history, physical exam and medical decision-making; I reviewed and confirmed the accuracy of the information in the transcribed note. Signed by: Ángel Sierra, 12/21/2016 at 1800. copies to: Denton Travis Beck O MD Dec 21, 2016 15:37 Simona Denny Dec 21, 2016 16:05
[2016-12-21] MEDS ORDERED: Lactated Ringer's 1,000 ML IV SCH (16:25)
[2016-12-21 16:47] LABS: BASOPHILS % (AUTO) 0.5 % (0-3); EOSINOPHILS % (AUTO) 0.4 % (0-5); MONOCYTES % (AUTO) 10.4 % (4-12); Mean Corpuscular Hemoglobin 32.5 pg (27.0-35.0); NEUTROPHILS % (AUTO) 72.9 % (40-74); Platelet Count 343 bil/L (150-400)
[2016-12-21] MEDS ORDERED: cefTRIAXone Inj 2,000 MG in Dextrose 5% 50 ML IV STA (16:48)
[2016-12-21] MEDS ORDERED: Alum-Mag Hydrox-Simeth 30 mL Suspension PO PRN ×2 (16:50→17:45)
[2016-12-21] MEDS ORDERED: Lidocaine 1%-Epi 1:100,000 50 mL Inj SUBQ ONE (16:50)
[2016-12-21] MEDS ORDERED: HYDROmorphone 1 mg/mL Inj IVPUSH ONE (16:50)
[2016-12-21] MEDS ORDERED: Ondansetron 2 mg/mL 2 mL Inj IVPUSH PRN ×2 (16:50→17:45)
[2016-12-21] MEDS ORDERED: Vancomycin Dose per Pharmacist XX ONE (16:50)
[2016-12-21] MEDS ORDERED: Vancomycin Inj 2,000 MG in 0.9% Sodium Chloride 500 ML IV ONE (16:55)
[2016-12-21 17:07] LABS: INR 3.24 ratio
[2016-12-21] MEDS ORDERED: 0.9% Sodium Chloride 100 ML ONE (17:11)
[2016-12-21] MEDS ORDERED: Lidocaine 1%-Epi 1:100,000 20 mL Inj ONE (17:13)
[2016-12-21 17:20] VITALS: BP 152/87; PULSE 82; RESP 21; O2SAT 93
[2016-12-21 17:35] LABS: ERYTHROCYTE SEDIMENTATION RATE 10 mm/hr (0-30)
[2016-12-21] MEDS ORDERED: 0.9% Sodium Chloride 1,000 ML IV SCH (17:41)
[2016-12-21] MEDS: Vancomycin Dose per Pharmacist XX SCH (17:45)
[2016-12-21] MEDS ORDERED: HYDROcodone-APAP 5-325 mg Tablet PO PRN (17:45)
[2016-12-21] MEDS ORDERED: Polyethylene Glycol (PEG) 17 Gm Powder PO PRN (17:45)
[2016-12-21 18:36] VITALS: BP 159/89; PULSE 95; RESP 19; O2SAT 95
[2016-12-21] MEDS ORDERED: WARF2.5T82 PO ×2 (19:37)
[2016-12-21] MEDS ORDERED: MELA1TAB16 PO (19:37)
[2016-12-21] MEDS ORDERED: ASPI325T32 PO (19:37)
[2016-12-21] MEDS ORDERED: CHOL200047 PO (19:37)
[2016-12-21] MEDS ORDERED: CYA1000I INJ (19:37)
[2016-12-21] MEDS ORDERED: SIMV40TA5 PO (19:37)
[2016-12-21] MEDS ORDERED: ATEN25TA PO (19:37)
--- NOTE | 2016-12-21 19:43 | PCM.HPMED ---
Subjective Date of Service Dec 21, 2016 Primary Provider: Admitting Physician: Pavel Figueroa DO Primary Care Physician: Denton Travis DO Attending Physician: Pavel Figueroa DO Chief Complaint: Worsening hand infection. History of Present Illness: Pt is an 81 YO male with known history of extensive vascular disease , most recently having intervention on lower extremities in 11/2016 for vascular disease (which sounds like a Fem-pop bypass of right leg, but he is not certain , hospital records from [facility] pending), and more remotely endorsing jasmyn of CABG, re-presenting to the ER today following now 2 week history of worsening hand pain and swelling. He had been seen in ER on 2 occasions prior, first receiving Keflex, then advanced to Clindamycin which initially appear effective but swelling again began progressing 3 days prior and he started to note drainage as well. He completed antibiotic course last night, and given condition had not resolved, actually worsening, he decided to return to ER for further evaluation. He notes no fever or chills at least. Actually feeling in overall well during my exam, now S/P surgical drainage of abscess by orthopedist. He is eating a dinner. He denies recent jasmyn of fever/ chills. Denies current chest pains or shortness of breath. Normal stooling, and bladder function. NO other acute complaints. He does note after DC from hospital on 11/2016 for vascular procedure , he had stopped smoking for a couple of weeks, but still of hand swelling caused a partial relapse. Review of Systems: 10 point review of systems conducted and grossly negative excepting positives and negatives included in above HPI> Allergies Coded Allergies: Sulfa (Sulfonamide Antibiotics) (Verified Allergy, Unknown, 12/21/16) atorvastatin (Verified Allergy, Unknown, 12/21/16) Home Medications Atenolol- 25 MG PO BID Cholecalciferol 2,000 UNIT PO DAILY Cyanocobalamin (Vitamin B12) 500 Mcg Tablet 1,000 MCG SQ Monthly Loperamide (Loperamide) 2 Mg Capsule 2 MG PO DAILY PRN Simvastatin- 40 Mg Tablet 40 MG PO HS Warfarin 5 Mg Tablet 5 MG PO WAR Aspirin 325mg PO daily Cyanocobalamin (Vitamin B-12) (Vitamin B12) 2,500 Mcg Tab.chew 2,500 MCG PO Scheduled PRN Acetaminophen (Acetaminophen) 325 Mg Tablet 325 MG PO Q4H PRN PRN For Fever Nitroglycerin SL (Nitrostat) 0.4 Mg Tab.subl 0.4 MG SL Q5MIN PRN PRN For Chest Pain PMH 1. Hypertension. 2. Hyperlipidemia. 3. Atrial fib, on anticoagulation. 4. Coronary artery disease with [place] in 1990 in which he underwent PTCA, but did not have a stent at that time. 5. Tobacco abuse. 6. Peripheral vascular disease 7. Hernia Surgical History 1. Abdominal aortic aneurysm repair in 2003. 2. Angioplasty in 1990. 3. Tonsillectomy. 4. Kidney stone status post extraction on March [address] Bauman. 5. TURP. 6. Right breast cyst. 7. Skin cancer excision. 8. Left orchiectomy. 9. Unspecified vascular surgeries, bilateral lower extremities (11/2016) Family History Unremarkable. Social History Hx Alcohol Use: Yes (OCCASIONALLY) Hx Substance Use: No Smoking Status: Light Tobacco Smoker Exam Vital Signs Vital Sign - Last Date Time Temp Pulse Resp B/P Pulse Ox O2 Delivery O2 Flow Rate FiO2 12/21/16 18:47 Room Air 12/21/16 18:36 36.5 95 19 159/89 95 General: Alert, Oriented X3, Cooperative, No Acute Distress Eyes: PERRLA Mouth: Mucous Membr Moist/[place] Neck: Supple Chest & Lungs: Clear to auscultation & percussion Cardiovascular: Regular Rate/Rhythm Abdomen: Non-tender, Non-distended Extremities: No cyanosis/clubbing/edma bilat, Other (Right hand wrapped in JARROD wrap/clean dressing. Fingers well perfused. Lower extremites demonstrate no signifcant edema. NO calf pain on palpation. ) Neurological: Grossly Neurologically Intact Lab and Diagnostics Result Diagram: 12/21/16 1637 12/21/16 1637 Assessment & Plan 81 YO M with known vasculopathy presenting with 2 week history of protracted infection of hand, now S/P I&D, admitted for continued IV therapy following failure of oral antibiotics. 1. Hand cellulites with abscess, S/L drainage - Continue broad spectrum antibiotics at this time, blood cultures pending. Especially in the setting of recent hospitlaization. - Continue IVFs at this time 100cc/hr NS overnight, pt additionally tolerating good PO. - Orthopedics consulted will continue to appreciate consultation and assistance with this case. 2. Vascular disease, Hypertension, Hyperlipidemia: - Continue home statin, blood pressure medications, and Aspirin at home dosages. - No acute interventions needed at this time. 3. Atrial Fibrillation: - Will consider restarting Warfarin in 1-2 days post op. - Monitor on telemetry at this time. 4. Tobacco dependence - Offered Nicoderm but pt declined. - Counselled on benefits of cessation, especially in the setting of such severe heart and peripheral vascular disease, but pt not interested in further support at this time. Pain Evaluation: Adequate Pain Control GI Prophylaxis: Other VTE Prophylaxis: Theraputic Anticoag with Warfarin Resuscitation Status: CPR: Attempt Resuscitation Time spent 50 minutes Pavel Figueroa DO Dec 21, 2016 19:43
--- NOTE | 2016-12-21 19:51 | CONS ---
[address] [address] CONSULTATION REPORT PATIENT: BERNY EARLY : 1935 MR#: [id number] ADMIT: 12/21/2016 JOB ID: [id number] DATE OF SERVICE: 12/21/2016 CHIEF COMPLAINT: Right hand pain and swelling. HISTORY OF PRESENT ILLNESS: The patient is an 81-year-old male who had a vascular procedure and an IV placed for this a couple of weeks ago. He developed redness and swelling in his hand over his dorsal hand IV site and was started on Keflex. This worsened and he developed swelling and cellulitis throughout the hand and he was started on clindamycin which he just finished. He states the swelling has improved. However, he continued to have pain and developed a couple areas of fluctuance in the hand. Was sent by his primary for an MRI scan. Found to have abscesses and referred to the emergency department and I was consulted. He is right-hand dominant. He denies any fevers or chills at this point and has been using his hand fairly well but states that he has continued to have pain and swelling over the dorsal aspect of the hand. PAST MEDICAL HISTORY: Significant for peripheral vascular disease. Atrial fibrillation on chronic Coumadin, cellulitis. PAST SURGICAL HISTORY: Includes a recent angioplasty for his right lower extremity. ALLERGIES: ATORVASTATIN. Blood pressure 152/87, pulse rate 82, respirations 21. Temperature 36.3. He is alert and cooperative in no acute distress. His right hand has very dry, scaly skin. He is able to flex and extend the fingers. Has some minimal pain over the dorsal aspect with this. He has an area of fluctuant swelling over the dorsal 3rd, 4th metacarpal region about 4-5 cm in size. He has a 2nd fluctuant area over the dorsal 5th metacarpal head. He has some diminished sensation throughout the hand. His hand is warm, pink, and well perfused. He has some mild erythema over the dorsal aspect of the hand but does not have any lymphangitis or proximal swelling or redness. LABORATORY: Hemoglobin 13.1, white blood cell count 9.3, CRP 0.4. INR elevated at 3.24. MRI scan was reviewed. Demonstrates two abscesses correlating to the area of clinical fluctuance. ASSESSMENT: Right dorsal hand abscess x2. PLAN: We discussed treatment options for this and I recommended a bedside I and D in the emergency department. We also discussed going to the OR as an alternative if you prefer to do this in the emergency department. Informed consent was obtained and he was given some Dilaudid to help with pain. The hand was sterilely prepped and draped. I anesthetized the two areas of the skin with lidocaine 1% with epinephrine using about 8 cc of local anesthetic. I then made a 1 cm incision over the dorsal 3rd metacarpal region and had clear fluid expressed from the wound as well as some necrotic appearing fat which was debrided. I irrigated the wound and debrided out the necrotic-appearing material. Used a hemostat to break up any loculations. I then made a 2nd 1 cm incision over his dorsal 5th metacarpal region, again irrigated the wound, used a hemostat to break up loculations and remove necrotic fat. Cultured both wounds and then placed quarter-inch Iodoform packing into both areas and a sterile dressing was applied. Patient tolerated the procedures well. POSTPROCEDURE PROTOCOL: Recommend the patient be admitted to the hospital, receive IV antibiotics, and have hospitalist consultation. Anticipate that he could have the packing changed tomorrow or perhaps the following day and await cultures to hopefully help guide antibiotic treatment. I spent 45 minutes of cyxi-up-dmwp time with the patient, greater than 50% of which was in counseling and coordination of care.
[2016-12-21 20:37] VITALS: PULSE 74
[2016-12-21 20:41] VITALS: BP 144/82; PULSE 67; RESP 19; O2SAT 96
--- NOTE | 2016-12-21 21:06 | PCM.PHAPRO ---
Progress Worsening hand infection. VANCOMYCIN DOSING PER PHARMACY Indication: Right hand abscess,cellulitis Labs: Scr 1.08 WBC 9.3 Additional abx: ceftriaxone Cultures: BC pending P: Pt received 2g vancomycin IV loading dose @ 2000 on 12/21 Will give vancomycin IV 1750mg Q12H beginning at 0800 on 12/22 Will draw trough on 12/23 @ 0730 Sylvie Guillory PharmD Dec 21, 2016 21:04
[2016-12-22] VITALS (8 sets, daily range): BP systolic 134–168; BP diastolic 85–112; PULSE 64–104; RESP 16–20; O2SAT 93–97
--- NOTE | 2016-12-22 03:15 | NUR ---
Admit Patient admitted to room 1021 right before change of shift. Med rec and part of admit completed by admit nurse. Patient A&Ox3, answering questions appropriately. IV patent. Tele placed per MD orders. Noted to have generalized bruising, flaking, and scabs to BL arms and legs. Red blanchable area noted to gluts with an intact scab to left inner glut. Mepilex placed for comfort. Finished rest of admit with patient to best of his ability. Addendum: 12/22/16 at 0320 by ADRIAN KUMAR RN CPOx placed for high JAVIER score.
[2016-12-22 06:58] LABS: BASOPHILS % (AUTO) 0.7 % (0-3); EOSINOPHILS % (AUTO) 1.7 % (0-5); MONOCYTES % (AUTO) 12.6 % (4-12); Mean Corpuscular Hemoglobin 32.3 pg (27.0-35.0); Mean Corpuscular Volume 101.9 fL (81-100); NEUTROPHILS % (AUTO) 70.9 % (40-74); Platelet Count 324 bil/L (150-400)
[2016-12-22] MEDS ORDERED: Vancomycin Inj 1,750 MG in 0.9% Sodium Chloride 500 ML IV SCH (08:00)
--- NOTE | 2016-12-22 08:05 | PCM.PNORTH ---
Subjective Date of Service: Dec 22, 2016 Visit Information: Reason for Visit Right Hand Abscess, Cellulitis Surgery/Surgery Date Post-Op Day # Date of Admission: Dec 21, 2016 at 17:42 Hospital Day # Subjective Found patient awake and alert and talkative and sitting up in bed. No complaints of pain at this time. Patient does ask when he will be discharged I have explained to him that we are waiting for cultures of the material was taken from the back of his hand and as soon as we know which antibiotic will be best for him he will be placed on that and discharged. He is understanding of this and is agreeable. I have explained to patient that his dressing and packing at the wound will likely be changed tomorrow on 12/23/2016. Patient says he is slid down and he feels that he is in his chest and has difficulty expanding his lungs. I have found a nurse and we have released patient in bed and repositioned him and he states he feels much better. Patient is hungry and is preparing to or breakfast. Postop General: No Complaints, No Shortness of Breath, No Chest Pain, Good Appetite Objective Exam Objective Alert and oriented 3 and pleasant. Interoperative dressing is clean dry and intact. Fingers and sensation are intact the right upper extremity distally. No compartment syndrome is noted at the right upper extremity Lemus is absent Cultures pending at right hand. Vital Signs and I/O Vital Sign - Last Date Time Temp Pulse Resp B/P Pulse Ox O2 Delivery O2 Flow Rate FiO2 12/22/16 06:04 36.4 64 20 159/94 97 Nasal Cannula 3.00 Intake and Output 12/21/16 12/21/16 12/22/16 Cumulative From/Thru 15:00 23:00 07:00 12/21/16 15:23 - 12/22/16 06:41 Intake Total 1000 ml 2528 ml 3528 ml Output Total 550 ml 550 ml Balance 1000 ml 1978 ml 2978 ml Intake Oral 1200 ml 1200 ml IV Total 1000 ml 1328 ml 2328 ml Output Urine Total 550 ml 550 ml # Voids 2 2 # Bowel Movements 0 0 Lab & Micro Results Laboratory Tests Test 12/21/16 16:37 12/22/16 06:25 White Blood Count 9.3th/mm3 (3.8-10.1) 9.4th/mm3 (3.8-10.1) Red Blood Count 4.03mil/mm3 (4.40-5.80) 4.18mil/mm3 (4.40-5.80) Hemoglobin 13.1g/dL (13.8-17.2) 13.5g/dL (13.8-17.2) Hematocrit 40.7% (41.0-50.0) 42.6% (41.0-50.0) Mean Corpuscular Volume 101.0fL (81-100) 101.9fL (81-100) Mean Corpuscular Hemoglobin 32.5pg (27.0-35.0) 32.3pg (27.0-35.0) Mean Corpuscular Hemoglobin Concent 32.2% (32.0-37.0) 31.7% (32.0-37.0) Red Cell Distribution Width 15.4% (12.3-15.4) 15.6% (12.3-15.4) Platelet Count 343bil/L (150-400) 324bil/L (150-400) Neutrophils (%) (Auto) 72.9% (40-74) 70.9% (40-74) Lymphocytes (%) (Auto) 15.6% (14-46) 14.0% (14-46) Monocytes (%) (Auto) 10.4% (4-12) 12.6% (4-12) Eosinophils (%) (Auto) 0.4% (0-5) 1.7% (0-5) Basophils (%) (Auto) 0.5% (0-3) 0.7% (0-3) Erythrocyte Sedimentation Rate 10mm/hr (0-30) Prothrombin Time 35.5sec (8.1-12.5) Prothromb Time International Ratio 3.24ratio Sodium Level 142mEq/L (134-144) 143mEq/L (134-144) Potassium Level 4.1mEq/L (3.5-5.2) 4.8mEq/L (3.5-5.2) Chloride Level 107mEq/L (97-108) 106mEq/L (97-108) Carbon Dioxide Level 21mmol/L (18-29) 25mmol/L (18-29) Blood Urea Nitrogen 23mg/dL (8-27) 22mg/dL (8-27) Creatinine 1.08mg/dL (0.76-1.27) 1.19mg/dL (0.76-1.27) Estimat Glomerular Filtration Rate 70mL/min (>59) 62mL/min (>59) Glucose Level 93mg/dL (60-99) 98mg/dL (60-99) Lactic Acid Level 1.2mmol/L (0.4-2.0) Calcium Level 9.5mg/dL (8.5-10.1) 9.4mg/dL (8.5-10.1) Total Bilirubin 0.6mg/dL (0.0-1.2) 0.6mg/dL (0.0-1.2) Aspartate Amino Transf (AST/SGOT) 13U/L (0-50) 12U/L (0-50) Alanine Aminotransferase (ALT/SGPT) 9U/L (0-44) 8U/L (0-44) Alkaline Phosphatase 110U/L (25-160) 107U/L (25-160) C-Reactive Protein 0.4mg/dL (0.0-0.5) Total Protein 6.4g/dL (6.4-8.4) 5.8g/dL (6.4-8.4) Albumin 3.3g/dL (3.4-5.0) 3.3g/dL (3.4-5.0) Microbiology 12/21/16 Blood Culture, Received Pending Result Diagram: 12/22/1625 12/22/16624 General Appearance: Alert, Oriented X3, Cooperative, No Acute Distress Extremities: No Compartment Syndrom Noted Postop Sensory Motor: Distal Motor Intact, Movement in Fingers, Distal Sensation Intact Catheters: None Assessment & Plan Impression Fran Avila is an 84-year-old male who has suffered an apparent infection at the dorsal aspect of the right hand at an IV site which was placed secondary to a vascular procedure he had undergone. This has been indeed in the emergency room by Dr. Cisneros and patient is admitted and awaiting culture results for material obtained at the incision site. Problems: Plan Postop day #1 from right hand I&D performed on 12/21/[address] Abdullahi Cisneros. Nonweightbearing at the right upper extremity with no pushing, pulling or lifting. Patient may be multiple add live with nursing assist as needed. Continue by mouth pain medication if needed. Continue IV antibiotics awaiting wound cultures for final antibiotic choices. Keep the wound dressing in place and clean and dry. Wound packing and dressing will be changed on postop day #2. Continue ASA 325 mg daily for DVT prophylaxis. Follow-up to be determined. Anticipate discharge when wound cultures are completed and final antibiotic choices were made and implemented. VTE Prophylaxis: Theraputic Anticoag with Warfarin, SCDs (bilateral SCDs), Other Resuscitation Status: CPR: Attempt Resuscitation Nazario Sweet PA-C Dec 22, 2016 08:05
[2016-12-22] MEDS: 0.9% Sodium Chloride 1,000 ML IV SCH ×2 (08:17→18:17)
[2016-12-22] MEDS: Vancomycin Dose per Pharmacist XX SCH (08:30)
--- NOTE | 2016-12-22 08:31 | PCM.PNMED ---
Subjective Date of Service Dec 22, 2016 Subjective Pt reports some discomfort in hand S/P I&D but not maximo pain. he denies fever/ chills over night. Had some diffculty sleeping but this is more due to being in hospital than hand pain. He notes good appetite, eating well. drinking a good amount of fluids s well. No other complaints at this time aside from a weakness which has been experienced last few weeks since hospital discharge. He had been receiving home health nursing care for rehab prior to admission with some benefit. Exam Vital Signs Vital Sign - Last Date Time Temp Pulse Resp B/P Pulse Ox O2 Delivery O2 Flow Rate FiO2 12/22/16 06:04 36.4 64 20 159/94 97 Nasal Cannula 3.00 Intake and Output 12/21/16 12/21/16 12/22/16 Cumulative From/Thru 15:00 23:00 07:00 12/21/16 15:23 - 12/22/16 06:41 Intake Total 1000 ml 2528 ml 3528 ml Output Total 550 ml 550 ml Balance 1000 ml 1978 ml 2978 ml Intake Oral 1200 ml 1200 ml IV Total 1000 ml 1328 ml 2328 ml Output Urine Total 550 ml 550 ml # Voids 2 2 # Bowel Movements 0 0 Exam General: Alert, Oriented X3, Cooperative, No Acute Distress Eyes: PERRLA Mouth: Mucous Membranes Moist/[place] Neck: Supple Chest & Lungs: Clear to auscultation & percussion Cardiovascular: Regular Rate/Rhythm Abdomen: Non-tender, Non-distended Extremities: No cyanosis/clubbing/edma bilat, Right hand wrapped in JARROD wrap/ clean dressing. Fingers well perfused. Lower extremities demonstrate no significant edema. NO calf pain on palpation. Neurological: Grossly Neurologically Intact IVs and Medications Medications Reviewed: Medications were reviewed in detail Lab and Diagnostics Result Diagram: 12/22/1662412/22/16624 Assessment & Plan 81 YO M with known vasculopathy presenting with 2 week history of protracted infection of hand, now S/P I&D, admitted for continued IV therapy following failure of oral antibiotics. 1. Hand cellulites with abscess, S/L drainage - Continue broad spectrum antibiotics at this time, blood cultures pending. Especially in the setting of recent hospitalization. - Continue IVFs at this time 100cc/hr NS, with pt additionally tolerating good PO will consider discontinuation in PM if this continues. . - Orthopedics consulted will continue to appreciate consultation and assistance with this case, as per AM note, plan for DC tomorrow with good progress. 2. Vascular disease, Hypertension, Hyperlipidemia: - Continue home statin, blood pressure medications, and Aspirin at home dosages. - No acute interventions needed at this time. 3. Atrial Fibrillation: - Given no evidence of active bleeding, will restart Warfarin therpay at this time, dosing as per pharmacy. 4. Tobacco dependence - Offered Nicoderm but pt declined. - Counselled on benefits of cessation, especially in the setting of such severe heart and peripheral vascular disease, but pt not interested in further support at this time. Pain Evaluation: Adequate Pain Control GI Prophylaxis: Not indicated VTE Prophylaxis: Theraputic Anticoag with Warfarin Resuscitation Status: CPR: Attempt Resuscitation Time spent 30 minutes Pavel Figueroa DO Dec 22, 2016 08:31
[2016-12-22] MEDS: cefTRIAXone Inj 2,000 MG in Dextrose 5% Minibag Plus 50 ML IV SCH (12:10)
--- NOTE | 2016-12-22 12:21 | NUR ---
Social Work-initial assessment: Data:See initial assessment. Pt is a 81 y/o male who was admitted on 12/21/16 for right hand abscess per H&P. Pt's insurance is [employer] and [employer] and PCP is Denton Travis MD. EMR Reviewed. DOMINIQUE met with pt at bedside, DOMINIQUE role explained. Pt resides at home alone on [address] where he remains independent with ADLs. Pt uses a fww at baseline and has not been driving. Pt has no fdc care insurance or VA benefits. SW discussed DPOA/ advanced directive, pt confirms he has completed this. Pt is currently open with [facility] and has no SNF history. Pt plans to return home with [facility] at discharge. DOMINIQUE called [facility] [phone] and spoke with Pilar. Pilar confirms pt is open with RN,PT, and OT. [facility] will need discharge orders and resume HH orders faxed to [phone] at discharge. Pt's family to provide transport home at discharge. DOMINIQUE provided phone number and plan on white board in room. DOMINIQUE will continue to follow. Assessment:Pt who has HH services. Plan:Pt to discharge home when medically stable via POV. Pt will need resume HH through [facility] at discharge. DOMINIQUE will continue to follow. RUPERTO Kim Addendum: 12/22/16 at 1226 by AFSHAN CHAPA SS Amended: Links added.
[2016-12-22 12:24] LABS: INR 2.75 ratio
[2016-12-22 12:32] LABS: APPEARANCE,URINE HAZY (CLEAR,HAZY); COLOR,URINE YELLOW (YELLOW)
[2016-12-22 12:33] LABS: OCCULT BLOOD,URINE NEGATIVE (NEGATIVE); UROBILINOGEN,URINE NORMAL (NORMAL)
--- NOTE | 2016-12-22 13:58 | NUR ---
Evaluation completed. Please go to "Notes" then click on "Assessments and Notes" (bottom left corner of screen). Then select appropriate discipline tab on top of screen.
--- NOTE | 2016-12-22 15:25 | PCM.CONPHA ---
Subjective Date of Service: Dec 22, 2016 Worsening hand infection. Reason for Pharmacy Consult: Anticoagulation Management Objective Vital Signs Date Time Temp Pulse Resp B/P Pulse Ox O2 Delivery O2 Flow Rate FiO2 12/22/16 13:00 36.8 78 18 141/97 95 Nasal Cannula 2.00 12/22/16 10:52 81 12/22/16 09:41 36.3 95 18 157/85 94 Nasal Cannula 2.00 12/22/16 06:04 36.4 64 20 159/94 97 Nasal Cannula 3.00 12/22/16 01:30 36.5 67 20 134/87 94 Nasal Cannula 3.00 12/21/16 20:41 36.4 67 19 144/82 96 12/21/16 20:37 74 12/21/16 20:00 Supplement Oxygen 12/21/16 18:47 Room Air 12/21/16 18:36 36.5 95 19 159/89 95 12/21/16 17:20 82 21 152/87 93 Room Air 12/21/16 15:23 36.3 72 16 142/80 97 Room Air Intake and Output 12/20/16 12/21/16 12/22/16 00:00 00:00 00:00 Intake Total 1000 ml Balance 1000 ml Weight (Kilograms): 161 Height (Feet): 5 Height (Inches): 10 Test 12/21/16 16:37 12/22/16 06:25 12/22/16 10:45 12/22/16 12:00 Erythrocyte Sedimentation Rate 10mm/hr (0-30) Lactic Acid Level 1.2mmol/L (0.4-2.0) C-Reactive Protein 0.4mg/dL (0.0-0.5) White Blood Count 9.4th/mm3 (3.8-10.1) Red Blood Count 4.18mil/mm3 (4.40-5.80) Hemoglobin 13.5g/dL (13.8-17.2) Hematocrit 42.6% (41.0-50.0) Mean Corpuscular Volume 101.9fL (81-100) Mean Corpuscular Hemoglobin 32.3pg (27.0-35.0) Mean Corpuscular Hemoglobin Concent 31.7% (32.0-37.0) Red Cell Distribution Width 15.6% (12.3-15.4) Platelet Count 324bil/L (150-400) Neutrophils (%) (Auto) 70.9% (40-74) Lymphocytes (%) (Auto) 14.0% (14-46) Monocytes (%) (Auto) 12.6% (4-12) Eosinophils (%) (Auto) 1.7% (0-5) Basophils (%) (Auto) 0.7% (0-3) Sodium Level 143mEq/L (134-144) Potassium Level 4.8mEq/L (3.5-5.2) Chloride Level 106mEq/L (97-108) Carbon Dioxide Level 25mmol/L (18-29) Blood Urea Nitrogen 22mg/dL (8-27) Creatinine 1.19mg/dL (0.76-1.27) Estimat Glomerular Filtration Rate 62mL/min (>59) Glucose Level 98mg/dL (60-99) Calcium Level 9.4mg/dL (8.5-10.1) Total Bilirubin 0.6mg/dL (0.0-1.2) Aspartate Amino Transf (AST/SGOT) 12U/L (0-50) Alanine Aminotransferase (ALT/SGPT) 8U/L (0-44) Alkaline Phosphatase 107U/L (25-160) Total Protein 5.8g/dL (6.4-8.4) Albumin 3.3g/dL (3.4-5.0) Urine Color Yellow (YELLOW) Urine Appearance Hazy (CLEAR,HAZY) Urine pH 7.0 (5.0-8.0) Urine Specific [place] 1.020 (1.003-1.035) Urine Protein 30mg/dL (NEG,TRACE) Urine Glucose (UA) Negativemg/dL (NEGATIVE) Urine Ketones Negativemg/dL (NEGATIVE) Urine Occult Blood Negative (NEGATIVE) Urine Nitrite Negative (NEGATIVE) Urine Bilirubin Negative (NEGATIVE) Urine Urobilinogen Normalmg/dL (NORMAL) Urine Leukocyte Esterase Negative (NEGATIVE) Urine RBC 3-10/hpf (0-2) Urine WBC 0-5/hpf (0-5) Urine Epithelial Cells Occasional/hpf (NONE-MOD) Urine Crystals None seen (NONE SEEN) Urine Bacteria None/hpf (NONE-FEW) Urine Hyaline Casts Occasional/lpf (NONE) Urine Granular Casts None seen (NONE SEEN) Urine Waxy Casts None seen (NONE SEEN) Urine Red Blood Cell Casts None seen (NONE SEEN) Urine White Blood Cell Casts None seen (NONE SEEN) Urine Mucus None seen (None Seen) Urine Trichomonas None seen (NONE SEEN) Urine Yeast None (NONE SEEN) Urinalysis Comment None Urine Culture Reflexed Not indicated Prothrombin Time 30.0sec (8.1-12.5) Prothromb Time International Ratio 2.75ratio Assessment/Plan Assessment/Plan WARFARIN MANAGEMENT A/ AFIB PT (GOAL 2-3) WITH HOME DOSE WARFARIN 1.25MG MO, AND 2.5MG ,,TH,SA ,HERNANDEZ CURRENT INR =2.75 WITH PREVIOUS SUPRATHERAPUETIC INR 12/21 P/ WILL GIVE WARFARIN 2MG TONIGHT AND MONITOR INR ADJUSTING WARFARIN NEEDED THANK YOU FOR THE CONSULT Rell Billings [facility] Dec 22, 2016 15:25
--- NOTE | 2016-12-22 20:24 | NUR ---
Activity/SOB Pt up to chair frequently this shift, pt easily short of breath on 3L O2, no complaints of pain this shift. care continued.
[2016-12-22] MEDS: Albuterol 2.5 mg/3 mL Inhalation Solution NEB PRN (20:55)
[2016-12-22] MEDS ORDERED: Furosemide 10 mg/mL 2 mL Inj IV ONE (23:15)
[2016-12-23] VITALS (11 sets, daily range): BP systolic 148–164; BP diastolic 78–91; PULSE 67–99; RESP 16–20; O2SAT 90–98
--- NOTE | 2016-12-23 01:52 | NUR ---
SOB Patient noted to be SOB at beginning of shift. 93% on 4L O2. Paged Dr. Rodgers @ [phone] and received order for Albuterol nebulizer treatment. RT administered neb treatment. Patient states it didn't help much with his SOB. IVF d/c'd per order and Dr. Rodgers repaged @ [phone]. Order received for Lasix 20mg IVP now. Lasix given. Patient noted to be less restless and appears to be breathing a little easier than prior to administration. Diuresing well. CPOx- 96-98% on 4L. Addendum: 12/23/16 at 0359 by ADRIAN KUMAR RN Per monitoring coordinator, patient had 10 beats of V-Tach. FYI page sent to Dr. Rodgers @ [phone]. No new orders.
[2016-12-23 06:18] LABS: BASOPHILS % (AUTO) 0.5 % (0-3); EOSINOPHILS % (AUTO) 0.7 % (0-5); MONOCYTES % (AUTO) 12.2 % (4-12); Mean Corpuscular Hemoglobin 32.7 pg (27.0-35.0); Mean Corpuscular Volume 99.3 fL (81-100); NEUTROPHILS % (AUTO) 78.5 % (40-74); Platelet Count 301 bil/L (150-400)
[2016-12-23 06:32] LABS: INR 2.2 ratio
[2016-12-23] MEDS: Vancomycin Dose per Pharmacist XX SCH (08:30)
--- NOTE | 2016-12-23 08:42 | PCM.PNMED ---
Subjective Date of Service Dec 23, 2016 Subjective Pt seen and examined at bedside. Today he notes frustration at still being in hospital, does not understand why it is taking so long to obtain culture results to allow his discharge. He notes hand is still feeling improved, denies sweat/chills. He did not a chest pressure/tightness this morning, which prompted night Dr exam and to order 20mg/ lasix due to concern for volume overload/CHF.. he denies over chest pains however. Exam Vital Signs Vital Sign - Last Date Time Temp Pulse Resp B/P Pulse Ox O2 Delivery O2 Flow Rate FiO2 12/23/16 08:16 Supplement Oxygen 12/23/16 08:16 36.3 84 16 162/80 92 2.00 Intake and Output 12/22/16 12/22/16 12/23/16 Cumulative From/Thru 15:00 23:00 07:00 12/21/16 15:23 - 12/23/16 06:30 Intake Total 600 ml 1843 ml 5971 ml Output Total 700 ml 1930 ml 3180 ml Balance -100 ml -87 ml 2791 ml Intake Oral 600 ml 536 ml 2336 ml IV Total 1307 ml 3635 ml Output Urine Total 700 ml 1930 ml 3180 ml # Voids 2 # Bowel Movements 1 0 1 Exam General: Alert, Oriented X3, Cooperative, No Acute Distress Eyes: PERRLA Mouth: Mucous Membranes Moist/[place] Neck: Supple Chest & Lungs: Clear to auscultation & percussion, no wheezing, crackles, rhonci. Cardiovascular: Regular rate. Abdomen: Non-tender, Non-distended Extremities: No cyanosis/clubbing/edmea bilat, Right hand wrapped in JARROD wrap/ clean dressing. Fingers well perfused. Lower extremities demonstrate no significant edema. NO calf pain on palpation. Neurological: Grossly Neurologically Intact IVs and Medications Medications Reviewed: Medications were reviewed in detail Lab and Diagnostics Result Diagram: 12/23/1650 12/23/1650 Assessment & Plan 81 YO M with known vasculopathy presenting with 2 week history of protracted infection of hand, now S/P I&D, admitted for continued IV therapy following failure of oral antibiotics. 1. Hand cellulites with abscess, S/L drainage - Continue broad spectrum antibiotics at this time, blood cultures pending. Especially in the setting of recent hospitalization. -Will discontinue IVFs at this time, monitor PO intake. - Orthopedics consulted will continue to appreciate consultation and assistance with this case, as per AM note, plan for DC tomorrow with good progress. 2. Vascular disease, Hypertension, Hyperlipidemia: - Continue home statin, blood pressure medications, and Aspirin at home dosages. - No acute interventions needed at this time. 3. Atrial Fibrillation: - Given no evidence of active bleeding, will restart Warfarin therapy at this time, dosing as per pharmacy. - Pt monitored on telemetry 4. Acute chest tightness/shortness of breath: - Chest XR ordered and pending. - Given recent cardiac studies including echo/stress test 2 week prior with negative result, i will defer fruther cardiac work up a this time, but may consider if result inconclusive or symptoms persist. 5. Tobacco dependence - Offered Nicoderm but pt declined. - Counselled on benefits of cessation, especially in the setting of such severe heart and peripheral vascular disease, but pt not interested in further support at this time. Pain Evaluation: Adequate Pain Control GI Prophylaxis: Not indicated VTE Prophylaxis: Theraputic Anticoag with Warfarin, SCDs (bilateral SCDs), Other VTE Mechanical Devices: Intermittant Pneumatic CD Resuscitation Status: CPR: Attempt Resuscitation Time spent 25 minutes Pavel Figueroa DO Dec 23, 2016 08:42
--- NOTE | 2016-12-23 10:42 | DRSVH ---
PROCEDURE: X-RAY CHEST, TWO VIEWS ([id number]) INDICATIONS: chest pressure/shortness of breath TECHNIQUE: 2 views of the chest were acquired. COMPARISON: [facility], CT, CT CHEST ABD PELVIS W CON, 07/14/2016, 9:34. [facility], CR, XR CHEST 2VW, 06/25/2016, 14:01. FINDINGS: Surgical changes and devices: None. Lungs and pleura: Right lower lobe infiltrate consistent with pneumonia. There is a small right effu ilan. No pneumothorax. Mediastinum: Mediastinal contours are normal. Heart size is mildly increased. Bones and chest wall: No suspicious bony abnormalities. Soft tissues appear unremarkable. IMPRESSION: 1. Right lower lobe pneumonia. Recommend followup to resolution. 2. Mild cardiomegaly. Dictated by: Florinda Reich M.D. on 12/23/2016 at 10:39 Approved by: Florinda Reich M.D. on 12/23/2016 at 10:40
[2016-12-23] MEDS: cefTRIAXone Inj 2,000 MG in Dextrose 5% Minibag Plus 50 ML IV SCH (11:16)
--- NOTE | 2016-12-23 11:49 | PCM.PNORTH ---
Subjective Date of Service: Dec 23, 2016 Visit Information: Reason for Visit Right Hand Abscess, Cellulitis Surgery/Surgery Date Post-Op Day # Date of Admission: Dec 21, 2016 at 17:42 Hospital Day # Subjective Postop day #2 from right hand I&D performed on 12/21/[address] Abdullahi Cisneros in the emergency room. Patient states that he is not doing well this morning. Denies any pain in the hand. States he is very short of breath and has a hard time lying down and breathing. States that he was not on oxygen at home. He is only able to walk a couple of steps before he gets significantly out of breath. Postop General: No Complaints, No Shortness of Breath, No Chest Pain, Good Appetite Objective Exam Objective Dressing on the right hand is clean dry and intact. Upon dressing removal patient has 2 wounds were still have 1-2+ residual edema. Patient also has 2+ plus and discharge from the wound with minimal compression around these. More discharge from the distal wound and patient does not have complete exposure of the flexor tendon but close. Patient able to wiggle fingers, sensation is intact, pulses intact, good capillary refill. Cultures: Culture results and finals are still pending but preliminary shows no growth from previous culture from the hand. Patient is lying down and short of breath upon waking him. He is on 2-3 L of oxygen via nasal cannula. Patient sits up in bed and is short of breath is lessening. Patient becomes increasingly tachypneic upon dressing change, especially with packing with a wick. Patient had x-ray this morning which showed right lower lobe infiltrate. Vital Signs and I/O Vital Sign - Last Date Time Temp Pulse Resp B/P Pulse Ox O2 Delivery O2 Flow Rate FiO2 12/23/16 08:25 82 20 95 Nasal Cannula 3.00 12/23/16 08:16 36.3 162/80 Intake and Output 12/22/16 12/22/16 12/23/16 Cumulative From/Thru 15:00 23:00 07:00 12/21/16 15:23 - 12/23/16 06:30 Intake Total 600 ml 1843 ml 5971 ml Output Total 700 ml 1930 ml 3180 ml Balance -100 ml -87 ml 2791 ml Intake Oral 600 ml 536 ml 2336 ml IV Total 1307 ml 3635 ml Output Urine Total 700 ml 1930 ml 3180 ml # Voids 2 # Bowel Movements 1 0 1 Lab & Micro Results Laboratory Tests Test 12/22/16 12:00 12/23/16 05:50 12/23/16 11:24 Prothrombin Time 30.0sec (8.1-12.5) 23.9sec (8.1-12.5) Prothromb Time International Ratio 2.75ratio 2.20ratio White Blood Count 12.4th/mm3 (3.8-10.1) Red Blood Count 4.13mil/mm3 (4.40-5.80) Hemoglobin 13.5g/dL (13.8-17.2) Hematocrit 41.0% (41.0-50.0) Mean Corpuscular Volume 99.3fL (81-100) Mean Corpuscular Hemoglobin 32.7pg (27.0-35.0) Mean Corpuscular Hemoglobin Concent 32.9% (32.0-37.0) Red Cell Distribution Width 15.3% (12.3-15.4) Platelet Count 301bil/L (150-400) Neutrophils (%) (Auto) 78.5% (40-74) Lymphocytes (%) (Auto) 7.9% (14-46) Monocytes (%) (Auto) 12.2% (4-12) Eosinophils (%) (Auto) 0.7% (0-5) Basophils (%) (Auto) 0.5% (0-3) Sodium Level 143mEq/L (134-144) Potassium Level 4.5mEq/L (3.5-5.2) Chloride Level 104mEq/L (97-108) Carbon Dioxide Level 24mmol/L (18-29) Blood Urea Nitrogen 21mg/dL (8-27) Creatinine 1.06mg/dL (0.76-1.27) Estimat Glomerular Filtration Rate 71mL/min (>59) Glucose Level 112mg/dL (60-99) Calcium Level 9.8mg/dL (8.5-10.1) Microbiology 12/21/16 Blood Culture - Preliminary, Resulted NO GROWTH AFTER 24 HOURS 12/23/16 Adenovirus DNA (PCR), Received Pending 12/23/16 Coronavirus 229E PCR, Received Pending 12/23/16 Coronavirus HKU1 PCR, Received Pending 12/23/16 Coronavirus NL63 PCR, Received Pending 12/23/16 Coronavirus OC43 PCR, Received Pending 12/23/16 Influenza Type A (PCR), Received Pending 12/23/16 Influenza Type B (PCR), Received Pending 12/23/16 Human Metapneumovirus (PCR) (AMISH), Received Pending 12/23/16 Rhinovirus (PCR)(AMISH), Received Pending 12/23/16 Parainfluenza Virus Type 1 (PCR), Received Pending 12/23/16 Parainfluenza Virus Type 2 (PCR), Received Pending 12/23/16 Parainfluenza Virus Type 3 (PCR), Received Pending 12/23/16 Parainfluenza Virus Type 4 (NAAT), Received Pending 12/23/16 Respiratory Syncytial Virus (PCR)LA, Received Pending 12/23/16 Chlamydia pneumoniae (PCR), Received Pending 12/23/16 Mycoplasma pneumoniae DNA Detection, Received Pending 12/21/16 Gram Stain - Final, Resulted 12/21/16 Culture & Sensitivity - Preliminary, Resulted No growth to date 12/21/16 Anaerobic Culture, Resulted Pending Result Diagram: 12/23/16 0550 12/23/16 0550 Catheters: None Assessment & Plan Impression Status post day #2 right hand I&D with cultures. Hand wound is still draining. Biggest concern is patient's breathing. Culture results not helpful so far patient is on IV antibiotics. Problems: Plan Postop day #2 from right hand I&D performed on 12/21/[address] Abdullahi Cisneros. Nonweightbearing of the right upper extremity at this point. We will consult wound care to consider daily dressing changes to the right hand and repacking if necessary while patient is in the hospital as wound is still very purulent. Patient will continue IV antibiotics. Dr. Jackson has been consulted and came into the room and performed a swab culture from the hand today. He will also order nasal swabs and a larger workup for her where this infection is originating from. Will also have additional studies for the lungs to see if this is a source of infection and causing the shortness of breath. Discussed the case with Dr. Figueroa regarding the concerns in the lungs. Thank you for continuing to follow his other medical concerns. Patient will Continue ASA 325 mg daily and warfarin is also on board, we will allow hospitalist to manage this once warfarin becomes therapeutic to decide if aspirin needs to be continued. Patient will remain in the hospital for a couple of days until we have a better plan for infectious disease and patient is more stable. VTE Prophylaxis: Theraputic Anticoag with Warfarin, SCDs (bilateral SCDs), Other Resuscitation Status: CPR: Attempt Resuscitation Nicolás Mackay PA-C Dec 23, 2016 11:49
--- NOTE | 2016-12-23 11:56 | PCM.PHAPRO ---
Progress Warfarin Management by Pharmacy: -Indication: afib -Inr Goal: 2-3 -Home Dose: 1.25mg on MoFr and 2.5mg all other days -Concurrent Anticoagulation: EC Asa 325mg daily -Drug Interactions: none noted -Coagulation Trends: -Dec 4-Sep 24-Dec 3.24 2.75 2.20 -0.49 -0.55 2 2.5mg -H/H: 13.5/41 -Platelets: 301 -Plan: inr therapeutic today at 2.20. will continue with home dose of warfarin 2.5mg this evening and follow Nataliia Gomes [facility] Dec 23, 2016 11:56
--- NOTE | 2016-12-23 13:29 | CONS ---
[address] [address] CONSULTATION REPORT PATIENT: BERNY EARLY : 1935 MR#: [id number] ADMIT: 12/21/2016 JOB ID: [id number] DATE OF SERVICE: 12/23/2016 INFECTIOUS DISEASE NEW CONSULTATION: I thank Dr. Edwar Figueroa for this timely consult. REASON FOR CONSULTATION: Right hand infection in an elderly gentleman. HISTORY OF THE PRESENT ILLNESS: The patient is an 81-year-old gentleman with a long smoking history and history of diffuse atherosclerotic disease including coronary arteries, abdominal aorta and peripheral vessels in his legs and elsewhere. Recently in November, the patient was hospitalized at [facility] in [place], and he underwent vascular procedures on both of his ischemic legs. He reports that he had a bypass in his right leg and a balloon angioplasty in his left, though we do not have all the records from that hospital stay, unfortunately, and Dr. Figueroa is trying to obtain these. In any event, the patient was discharged home but developed progressive swelling, tenderness, pain and drainage in his dorsal right hand which he says arose from an IV that stayed in place too long and became irritated while he was at [facility]. This painful swelling of the right dorsal hand led the patient to seek medical care in our ED on two occasions prior to his admission. During one of these occasions he received Keflex. Then, he came back and was switched to clindamycin but neither of these led to much improvement. He was therefore admitted two days ago back on December 21. An MRI scan was done which was worrisome in terms of deep infection and for that reason, he underwent I and D by Ortho on the . They found relatively little purulence and sent cultures, which so far are negative. The patient was started on antibiotics, which currently include vancomycin and ceftriaxone but despite these antibiotics for a couple of days he has not improved much. Today, Dr. Figueroa asked me to see the patient. When examining the patient with Orthopedics, both the orthopedic PA and I were quite concerned that his infection was still under relatively poor control and for this reason, infectious disease consultation has been requested. Despite this ongoing infection in his right hand which has now been going on for a couple of weeks, the patient notes he has no fevers, chills, or sweats. He does not have pain up under his right arm and the axilla at all and really has no constitutional symptoms of infection. He does, however, complain of progressive shortness of breath. Note that he is a heavy smoker and is always somewhat short of breath but does not use oxygen at home and today, he was short of breath just of making a few simple movements around his room which is quite atypical for him and raises additional concerns. He does not have much in the way of cough right now but is very short of breath with exertion. PAST MEDICAL HISTORY: 1. Atherosclerotic disease: a. Coronary artery disease, status post percutaneous angioplasty. b. Abdominal aortic aneurysm with repair. c. Bilateral lower extremity arterial work has been done, though we do not have all the details. d. Status post myocardial infarction. 2. Hypertension. 3. Hyperlipidemia. 4. Heavy lifelong tobacco use. 5. Status post AAA repair in 2003. 6. TURP. 7. Nephrolithiasis. 8. Left orchiectomy. SOCIAL HISTORY: The patient is a heavy smoker who recently stopped smoking because of his multiple hospitalizations, though he does have a tendency to stop and start smoking, and has really only stopped with this admission. He has an occasional alcohol user. Does not use illicit substances. FAMILY HISTORY: Negative for tuberculosis in first-degree relatives. REVIEW OF SYSTEMS: The patient has no significant headache today. No confusion. No acute change in his vision. No sore throat. Minimal cough though, as mentioned, he gets very short of breath with any exertion and that seems to be relatively new. No chest pain. No nausea, vomiting, or diarrhea. No significant pain in his lower extremities, both of which were recently revascularized. No skin rash. Does have some pain in his right hand, especially round the distal 5th metacarpal on the dorsal aspect of the hand. Remainder of the review of systems negative. PHYSICAL EXAMINATION: Reveals an afebrile gentleman. Temp 36.3, pulse 82, respiratory rate 20, blood pressure 162/80, saturating 95% on 3 L. Usually, he is on no supplemental oxygen, so that is worrisome. He has been afebrile throughout his two-day hospital stay. He is alert and oriented. Earlier this morning he was a bit cantankerous in that he wants to be discharged but he now understands the necessity to stay and is quite calm. Examination of the head reveals no temporal wasting. He does have some actinic keratoses. His eyes without scleral icterus or conjunctivitis. Oral cavity, no thrush or hairy leukoplakia. Neck has prominent cervical nodes but none greater than 2 cm. I do not see any JVD. Lungs with decreased breath sounds diffusely, especially so at the right base. There are scattered rhonchi and rales but not impressive. Cardiac tones: Regular rate and rhythm without significant murmur. Abdomen is soft and nontender without organomegaly. No suprapubic fullness is noted. No Lemus catheter is present. Examination of the lower extremities reveals scars consistent with prior peripheral vascular surgeries. His lower extremities both have venous stasis changes and in some degree about 1+ edema. He does not have any skin breakdown ongoing over his lower extremities at this point. There is no evidence for synovitis. The patient's right hand has two small open areas, one just proximal to the 4th metacarpophalangeal joint and the other one is in the middle of the right dorsal hand. The one closest to the distal 4th metacarpal clearly has purulent material on the bottom of it, and I was able to place a Q-tip about 0.5 cm deep into the hand and extract some yellow material, which we are sending for culture. He is neurologically intact. He can move everything and is capable of getting up and walking, though he does become extremely short of breath when he does so. LABORATORIES: Include white blood count 12,400, 12% monocytes. His creatinine 1.06. His LFT are normal. His urinalysis without white cells. We just ordered a streptozyme. It is pending, of course. His blood cultures at admission on the are negative. Interestingly, the culture of the wound from the has just a few polys, and no organisms were seen on the Gram stain. It has not grown in two days which is a bit surprising. IMAGING: Imaging of the hand was performed on the in the ED, apparently. It showed extensive dorsal soft tissue edema and enhancement consistent with cellulitis. There was also evidence of underlying myositis, as well as peritendinitis along the extensor tendons. Two small abscesses were noted in the hand, and these are the areas that underwent I and D by surgery on the , and which we examined again today. 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 He was in the [facility] in [place] for vascular procedures on his legs and appears to have suffered the development of an abscess that is at the site of a peripheral IV in his right distal hand. The most probable organism here would be staphylococcus, and I am a little surprised nothing grew but I think it is probably because he was on clindamycin at the time the culture was done, and I still would assume this is likely a staphylococcal infection based on its appearance. We had done an additional culture today and are also ordering an ASO titer, as well as a nasal MRSA PCR to try and get a better handle on what the microbiology of this infection is. Additionally, Dr. Figueroa ordered a chest x-ray this morning which I reviewed and which is worrisome in that it shows what appears to be a right lower lobe infiltrate. This is relatively asymptomatic, as he is not having much in the way of cough but he does certainly have dyspnea with exertion. RECOMMENDATIONS: 1. ASO titer and nasal MRSA swab will be checked. 2. Urine antigens will be ordered for pneumococcus and legionella, as we seem to have a new pulmonary infiltrate, as well as this ongoing infection in his hand. 3. Because of a somewhat atypical appearance of the infiltrate on the chest x-ray, I have taken the liberty of ordering a noncontrast CT of the chest to see if we can get a better feel for what is going on there in this gentleman with a long smoking history. He may require pulmonary evaluation and/or thoracentesis depending on what we see on the CAT scan. 4. Procalcitonin will be ordered. 5. Viral respiratory panel will be ordered. This will also provide information regarding possible mycoplasma or chlamydial pneumonia. 6. The current antibiotics consist of vancomycin and ceftriaxone, which are probably a reasonable place to start while we attempt to figure this out. Hopefully, we will soon have a positive culture. 7. I told the patient that despite his desire to leave, at this point we have multiple issues going on including his new right-sided pulmonary infiltrate with exertional shortness of breath, as well as an abscess of the right hand which, if anything, sounds like it is worse than when he came in. These are both serious matters, and the patient will need to stay here at least a few days while we sort it out and figure out the appropriate therapy. He understands this. Thank you very much.
--- NOTE | 2016-12-23 13:30 | NUR ---
RESPIRATORY/ACTIVITY Patient's PO2 when awake is in the mid 90's. PO2 when asleep in the high 80's. Patient stated that he has been having SOB prior to admit but this has gotten progressively worse since yesterday. He had Lasix IV this morning. Lung sounds are clear this morning. No coughing noted. Dr. Figueroa was made aware. New orders for CXR received. He was also seen by Dr. Jackson. New orders received. Resp PCR sent to the lab. Patient will be having a chest CT. He has been tolerating PO liquids. Denies nausea. No emesis noted. Poor appetite. Dressing was changed by INOCENCIO Pickens this morning. Transferring independently from the chair to the bed in the room. Care endorsed to Farzana Herman RN.
--- NOTE | 2016-12-23 13:36 | NUR ---
Assumed care of patient At 13:30. To CT via wheelchair at 13:35. Addendum: 12/23/16 at 1347 by HARRIETT FREEMAN RN Returned at 14:45
--- NOTE | 2016-12-23 14:06 | DRSVH ---
PROCEDURE: CT CHEST WITHOUT CONTRAST ([id number]) INDICATIONS: sob, r EFFUSION AND OR INFILTRATE TECHNIQUE: Noncontrast 5 mm thick sections acquired from the pulmonary apices to the posterior costophrenic angl es. 7 mm thick coronal and sagittal MIP reformats were then acquired. For radiation dose reduction, the following was used: automated exposure control, adjustment of mA and/or kV according to patient size. COMPARISON: [facility], CT, CHEST WITH CONTRAST, 10/05/2011, 14:14. [facility], CT, CT CHEST ABD PELVIS W CON, 07/14/2016, 9:34. FINDINGS: Image quality: Excellent. Lungs and pleura: No pneumothorax. There is a small right pleural effusion and trace left pleural eff usion. There is moderate airspace opacity within the right lower lobe posteriorly. Mild patchy airspa ce opacity within the right upper lobe and left upper lobe. Central and peripheral airways are patent and normal in caliber. Mediastinum: Heart size is enlarged. There is calcification of the coronary vasculature. No pericard ial effusion. There is a soft tissue density nodule within the left posterior mediastinum adjacent to the left posterolateral margin of the upper thoracic esophagus and the medial aspect of the distal a ortic arch, which is not significantly change in size, currently measuring 28 mm anteroposterior by 2 2 mm transverse, and 60.3 Hounsfield units following intravenous contrast administration (previously demonstrating Hounsfield units of 58 following intravenous contrast administration). Thoracic aorta a nd central pulmonary arteries are normal in size. Esophagus is normal in caliber. No hiatal hernia. Bones and chest wall: No suspicious bony lesions. No vertebral body compression fractures. No axil roxane or supraclavicular adenopathy by size criteria. Thyroid gland is within normal limits. Abdomen: Visualized upper abdominal solid organs and bowel loops appear normal in the absence of con trast. IMPRESSION: 1. Bilateral multifocal pneumonia, worse in the right lower lobe. Small parapneumonic effusion. Trace left pleural effusion. 2. 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 3. Cardiomegaly and coronary artery disease. Dictated by: Shree Schulz M.D. on 12/23/2016 at 13:58 Approved by: Shree Schulz M.D. on 12/23/2016 at 14:05
[2016-12-23] MEDS: Albuterol 2.5 mg/3 mL Inhalation Solution NEB PRN ×2 (15:57→22:44)
--- NOTE | 2016-12-23 17:15 | NUR ---
Tele Per personnel monitor 6 beats Vtach ~ 17:05. Pt asymptomatic, MD aware. No new orders, continue to monitor.
--- NOTE | 2016-12-23 22:04 | PROG NOTE ---
[address] [address] PROGRESS NOTE PATIENT: BERNY EARLY : 1935 MR#: [id number] ADMIT: 12/21/2016 JOB ID: [id number] DATE: 12/23/2016 SUBJECTIVE: Patient seen and examined. Doing okay. States that his hand feels subjectively a bit better. He has noticed some increased pain over the 5th metacarpal head region and states that he was seen by Dr. Jackson earlier and is pleased to have his input. OBJECTIVE: Blood pressure 148/80, pulse rate 99, respirations 18, temperature 36.5. He is alert and cooperative, in no acute distress. Right hand was examined. Has some fluctuance over the 5th metacarpal head. His packing was removed from the 5th metacarpal region wound, and there was some clear drainage noted in this area. He is able to flex and extend the fingers and his swelling is fairly mild and minimal. ASSESSMENT: Additional abscess, 5th metacarpal head region. PLAN: We discussed treatment options for this, and the patient again reiterated that he does not wish to have general anesthesia or have any operative debridement, and I offered that we could do a bedside I and D of the small 5th metacarpal head abscess, and he agreed and informed consent was obtained. PROCEDURE: Under aseptic technique, I injected the 5th metacarpal head region with 3 cc of 1% lidocaine and sterilely prepped the area and a 15 blade scalpel used to make a small 1 cm incision over the 5th metacarpal head and iris scissors were used to dissect down. There was some clear fluid noted. Again, no purulence. The area was irrigated and then packed with iodoform packing to pack both areas. A sterile dressing was then applied as well as Tone wrap. The patient tolerated the procedure well. Will continue to follow the hand and try to manage this without the operating room if possible and continue with IV antibiotics per Infectious Disease.
[2016-12-24] VITALS (9 sets, daily range): BP systolic 137–180; BP diastolic 80–92; PULSE 58–83; RESP 16–20; O2SAT 95–99
--- NOTE | 2016-12-24 04:00 | NUR ---
Respiratory / mobility Pt having significant SOB with and without exertion, lungs diminished bilateral, right lung with fine crackles. In early am recheck, bilateral lungs with increasing rales. Requires 4L O2 via NC for sats>90%, pulse oximetry unreliable related to poor circulation, frequent monitoring with spot checks and replacing NC show sats adequate. Pt is impulsive,exits bed without waiting for assistance, tone alarm engaged for safety. Pt able to ambulate with unsteady gait, encouraged to use FWW. Stands at bedside for urinal use. Hourly rounding ongoing.
[2016-12-24 06:48] LABS: BASOPHILS % (AUTO) 0.6 % (0-3); EOSINOPHILS % (AUTO) 2.1 % (0-5); MONOCYTES % (AUTO) 14.6 % (4-12); Mean Corpuscular Hemoglobin 32.6 pg (27.0-35.0); Mean Corpuscular Volume 100.5 fL (81-100); NEUTROPHILS % (AUTO) 72.9 % (40-74); Platelet Count 277 bil/L (150-400)
[2016-12-24 07:11] LABS: INR 1.75 ratio
[2016-12-24] MEDS: Vancomycin Dose per Pharmacist XX SCH (07:50)
[2016-12-24] MEDS ORDERED: 0.9% Sodium Chloride 100 ML ONE (08:09)
[2016-12-24] MEDS: cefTRIAXone Inj 2,000 MG in Dextrose 5% Minibag Plus 50 ML IV SCH (08:18)
--- NOTE | 2016-12-24 10:04 | PCM.PNORTH ---
Subjective Date of Service: Dec 24, 2016 Visit Information: Reason for Visit Right Hand Abscess, Cellulitis Surgery/Surgery Date Post-Op Day # Date of Admission: Dec 21, 2016 at 17:42 Hospital Day # Subjective Found patient awake and alert and sitting up in a chair ascites bed. Patient's daughter is in attendance at bedside today. Patient is growing restless of being in the hospital and is anxious to do something about his condition. I have explained to him that we are asking wound care to perform daily dressing changes and that at this time there are no positive results on his cultures. We have discussed the fact that Dr. Jackson from infectious disease is on his case and will likely be speaking with him as soon as he knows something from the tested and been done. Postop General: No Shortness of Breath (no shortness of breath on 4-5 L O2), No Chest Pain, Good Appetite Pain Management: No or Minimal Pain Objective Exam Objective Alert and oriented 3 and pleasant. Right hand and wrist dressing are clean dry and intact. Dr. Cisneros is seen patient yesterday on 12/23/2016 and performed a needle biopsy at the dorsal right fifth metacarpophalangeal joint. Dressing is not changed today but wound care has been ordered at the direction of Dr. castaneda to begin daily wound dressing changes today and packing changes as well. Patient has reasonable mobility at the hand and is taking no pain medication. Vital Signs and I/O Vital Sign - Last Date Time Temp Pulse Resp B/P Pulse Ox O2 Delivery O2 Flow Rate FiO2 12/24/16 08:43 Supplement Oxygen 12/24/16 08:13 64 138/83 98 5.00 12/24/16 05:36 36.5 20 Intake and Output 12/23/16 12/23/16 12/24/16 Cumulative From/Thru 15:00 23:00 07:00 12/21/16 15:23 - 12/24/16 06:39 Intake Total 1546 ml 7517 ml Output Total 3180 ml Balance 1546 ml 4337 ml Intake Oral 885 ml 3221 ml IV Total 661 ml 4296 ml Output Urine Total 3180 ml # Voids 3 5 # Bowel Movements 1 Lab & Micro Results Laboratory Tests Test 12/23/16 11:24 12/24/16 01:15 12/24/16 06:30 Procalcitonin 0.09ng/mL (0.00-0.08) Urine Legionella pneumophilia Ag Negative (Negative) White Blood Count 8.0th/mm3 (3.8-10.1) Red Blood Count 4.36mil/mm3 (4.40-5.80) Hemoglobin 14.2g/dL (13.8-17.2) Hematocrit 43.8% (41.0-50.0) Mean Corpuscular Volume 100.5fL (81-100) Mean Corpuscular Hemoglobin 32.6pg (27.0-35.0) Mean Corpuscular Hemoglobin Concent 32.4% (32.0-37.0) Red Cell Distribution Width 15.2% (12.3-15.4) Platelet Count 277bil/L (150-400) Neutrophils (%) (Auto) 72.9% (40-74) Lymphocytes (%) (Auto) 9.6% (14-46) Monocytes (%) (Auto) 14.6% (4-12) Eosinophils (%) (Auto) 2.1% (0-5) Basophils (%) (Auto) 0.6% (0-3) Hematology Comments Prothrombin Time 18.9sec (8.1-12.5) Prothromb Time International Ratio 1.75ratio Microbiology 12/21/16 Blood Culture - Preliminary, Resulted No growth at 2 days; culture examined... 12/23/16 Adenovirus DNA (PCR) - Final, Complete Not Detected 12/23/16 Coronavirus 229E PCR - Final, Complete Not Detected 12/23/16 Coronavirus HKU1 PCR - Final, Complete Not Detected 12/23/16 Coronavirus NL63 PCR - Final, Complete Not Detected 12/23/16 Coronavirus OC43 PCR - Final, Complete Not Detected 12/23/16 Influenza Type A (PCR) - Final, Complete Not Detected 12/23/16 Influenza Type B (PCR) - Final, Complete Not Detected 12/23/16 Human Metapneumovirus (PCR) (AMISH) - Final, Complete Not Detected 12/23/16 Rhinovirus (PCR)(AMISH) - Final, Complete Not Detected 12/23/16 Parainfluenza Virus Type 1 (PCR) - Final, Complete Not Detected 12/23/16 Parainfluenza Virus Type 2 (PCR) - Final, Complete Not Detected 12/23/16 Parainfluenza Virus Type 3 (PCR) - Final, Complete Not Detected 12/23/16 Parainfluenza Virus Type 4 (NAAT) - Final, Complete Not Detected 12/23/16 Respiratory Syncytial Virus (PCR)ND - Final, Complete Not Detected 12/23/16 Chlamydia pneumoniae (PCR) - Final, Complete Not Detected 12/23/16 Mycoplasma pneumoniae DNA Detection - Final, Complete 12/24/16 Streptococcus pneumoniae Ag Screen - Final, Complete 12/23/16 Gram Stain - Final, Resulted 12/23/16 Culture & Sensitivity - Preliminary, Resulted No growth to date 12/23/16 Anaerobic Culture, Resulted Pending Result Diagram: 12/24/16 0630 12/23/16 0550 General Appearance: Alert, Oriented X3, Cooperative, No Acute Distress Extremities: No Compartment Syndrom Noted Postop Sensory Motor: Distal Motor Intact, Movement in Fingers, Distal Sensation Intact Catheters: None Assessment & Plan Impression Status post day #3 right hand I&D with cultures. Hand wound is still draining. Biggest concern is patient's breathing. Culture results not helpful so far patient is on IV antibiotics. Problems: Plan Postop day #3 from right hand I&D performed on 12/21/[address] Abdullahi Cisneros. Nonweightbearing of the right upper extremity at this point. Wound care is ordered today for daily dressing changes and packing changes at the right dorsal hand. Patient will continue IV antibiotics with Dr. Jackson in consult. Hospitalist will continue workup and treatment on patient's respiratory issues. Patient will Continue ASA 325 mg daily and warfarin is also on board per hospitalist service with dosing by pharmacy. Dr. Cisneros has performed a needle biopsy at the dorsal fifth metacarpophalangeal joint yesterday on 12/23/2016 and results from this are awaited. Orthopedics Thanks hospitalist service and Dr. Jackson from infectious disease for their help in the medical management of this patient. Anticipate discharge by hospitalist service when results from all biopsies have been finalized and final antibiotic treatment is determined and implemented per Dr. Jackson. VTE Prophylaxis: Theraputic Anticoag with Warfarin, SCDs (bilateral SCDs), Other (ASA 325 mg EC by mouth twice a day 6 weeks plus warfarin while in-house. ) Resuscitation Status: CPR: Attempt Resuscitation Nazario Sweet PA-C Dec 24, 2016 10:04
[2016-12-24] MEDS ORDERED: Vancomycin Serum Trough XX ONE (11:30)
--- NOTE | 2016-12-24 11:53 | PCM.PHAPRO ---
Progress Date of Service: Dec 24, 2016 Warfarin management per pharmacy Indication: atrial fibrillation INR goal: 2-3 Home warfarin dose: 1.25 on Mon/Fri, 2.5 on all other days of the week. Pertinent info: - Treated for cellulitis with linezolid. Date Dec 07-Sep 24-Dec 24-Dec INR 3.24 2.75 2.20 1.75 INR change -0.49 -0.55 -0.45 Warf Dose 2 2.5mg XXX INR is subtherapeutic and trending down. Likely due to held/decreased doses for supratherapeutic INR. Will order bolus dose tonight (usual dose on Fridays is 1.25 mg). Give warfarin 3 mg PO once this evening at 1700. Pharmacy to continue to monitor and dose warfarin daily. Thank you, Elliott Jarvis Pharmacist Elliott Jarvis Dec 24, 2016 11:53
--- NOTE | 2016-12-24 11:59 | PROG NOTE ---
[address] [address] PROGRESS NOTE PATIENT: BERNY EARLY : 1935 MR#: [id number] ADMIT: 12/21/2016 JOB ID: [id number] DATE: 12/24/2016 INFECTIOUS DISEASE FOLLOW UP NOTE: REASON FOR FOLLOWUP: Right hand infection apparently secondary to an IV that had been placed during a recent stay at [facility] as well as pneumonia in a patient with severe diffuse vascular disease. INTERVAL HISTORY: Overnight, the patient reports no fevers or chills. He continues to be moderately short of breath and note that he does have underlying chronic lung disease, but he is more short of breath than his baseline. Minimal nonproductive cough. No abdominal complaints. He does have some pain in his right hand which is intermittently quite severe. At the time we saw the patient, his hand was being actively explored by the pre certification specialist, Jv Rosas. PHYSICAL EXAMINATION: Reveals an afebrile gentleman, temperature 36.5, pulse 64, respiratory rate 20, blood pressure 138/83, saturating well on 5 L. The patient's mental status is clear. Oral cavity negative. Lungs with decreased breath sounds both bases but especially so on the right with some rales present. Cardiac tones without change. Abdomen: Soft and nontender. His right hand is impressive in that there is a great deal of tunneling over the right ulnar dorsal side of the hand. This is fairly deep and the pre certification specialist was able to use a wooden Q-tip handle to show that the three wounds now present on the dorsal aspect of the hand basically all interconnect. LABORATORIES: Include white count 8000 today. Creatinine 1.06. LFTs are normal. Procalcitonin 0.09. A lot of micro data is available. Multiple blood cultures are negative. Two cultures of the hand have been done, one the which was done by Dr. Cisneros in surgery and one the that I did. These are both negative interestingly. PCR of the nares negative for MRSA. Strep and Legionella urine antigens are negative and a nasopharyngeal PCR panel negative. The CT we ordered yesterday shows bilateral pneumonia, worse in the right lower lobe, as well as cardiomegaly with coronary disease. IMPRESSION: This is a difficult case of a gentleman with underlying coronary disease as well as peripheral vascular disease and now right hand infection which occurred apparently while he was in the hospital being treated surgically for his vascular disease. He also has a significant pulmonary infiltrate on the right with associated effusion. At this point, it is unclear what the organism is infecting his right hand. Recall that he had Keflex followed by clindamycin as an outpatient and I think this was probably a strep or staph infection and the clindamycin and Keflex were able to produce negative cultures though not completely control this infection. Likewise unclear exactly what kind of a right-sided pneumonia with effusion he has at this point. He is relatively nontoxic despite having this infiltrate and effusion and has a very low procalcitonin. RECOMMENDATIONS: 1. Will go ahead and switch his IV vancomycin which is a very high dose and somewhat concerning in an older gentleman. Will switch it to Zyvox 600 p.o. b.i.d. which should be excellent for his hand infection. Will also provide gram-positive coverage for any pneumonia. 2. In the short run, will continue with the ceftriaxone he has been receiving as this will provide some gram-negative coverage for a possible pulmonary process. 3. I would think the patient should be observed in the hospital at least a couple more days because of his ongoing pulmonary as well as hand processes. 4. It may be reasonable to do an ultrasound and consider tapping his pleural effusion if that has never been done in this complex elderly gentleman.
--- NOTE | 2016-12-24 14:51 | NUR ---
Wound Care Wound evaluation orders received, pt seen at bedside. 81 yo male admitted with right hand cellulitis requiring I&D 12/23 by ortho. Presents with 3 open areas at the right dorsum of the hand overlying the 5th metacarpal, each open area is approx 0.5 cm in diameter the most proximal of the 3 nearly tracts to the next distal opening approx 3 cms, the most distal of the openings overlying the 5 MTP joint does communicate with the next proximal opening, all wounds are cleaned and irrigated with saline then packed loosely with 1" gauze packing strip, wrapped with kerlix and held in place with surgilast. Patient encouraged to keep the hand elevated above his heart on a pillow. Extensor and flexor motion at the fingers of the right hand are maintained and AROM is 95% of normal. Nursing to change dressings daily, wound will recheck on this patient on Tuesday. Pt has home health at home and would recommend they continue with dressing changes once discharged. Inpatient nursing dressing change orders are in interventions, recommend convert to 1/4" packing strips to improve ease of packing.
--- NOTE | 2016-12-24 15:14 | PCM.PNMED ---
Subjective Date of Service Dec 24, 2016 Subjective No complaints, looking forward to being discharged home. Exam Vital Signs Vital Sign - Last Date Time Temp Pulse Resp B/P Pulse Ox O2 Delivery O2 Flow Rate FiO2 12/24/16 14:15 Nasal Cannula 1.00 12/24/16 12:46 36.7 66 18 142/82 97 Intake and Output 12/23/16 12/23/16 12/24/16 Cumulative From/Thru 15:00 23:00 07:00 12/21/16 15:23 - 12/24/16 06:39 Intake Total 1546 ml 7517 ml Output Total 3180 ml Balance 1546 ml 4337 ml Intake Oral 885 ml 3221 ml IV Total 661 ml 4296 ml Output Urine Total 3180 ml # Voids 3 5 # Bowel Movements 1 Exam General: Alert and oriented, no acute distress Heart: Regular Lungs: Clear Abdomen: Soft, non-tender Extremities: 1+ pedal edema extending to trace just below the knees Lab and Diagnostics Result Diagram: 12/24/16 0630 12/23/16 0550 Assessment & Plan 81 YO M with known vasculopathy presenting with 2 week history of protracted infection of hand, now S/P I&D, admitted for continued IV therapy following failure of oral antibiotics. # Hand cellulites with abscess, S/L drainage Postop day #3 from right hand I&D performed on 12/21/[address] Cisneros has performed a needle biopsy at the dorsal fifth metacarpophalangeal joint yesterday on 12/23/2016 and results from this are awaited. Nonweightbearing of the right upper extremity at this point. Wound care is ordered today (by ortho) for daily dressing changes and packing changes at the right dorsal hand. Ortho: antibiotics as per Dr. Jackson in consult. ID, Dr Jackson recommendations today: 1. Will go ahead and switch his IV vancomycin which is a very high dose and somewhat concerning in an older gentleman. Will switch it to Zyvox 600 p.o. b.i.d. which should be excellent for his hand infection. Will also provide gram-positive coverage for any pneumonia. 2. In the short run, will continue with the ceftriaxone he has been receiving as this will provide some gram-negative coverage for a possible pulmonary process. 3. I would think the patient should be observed in the hospital at least a couple more days because of his ongoing pulmonary as well as hand processes. 4. It may be reasonable to do an ultrasound and consider tapping his pleural effusion if that has never been done in this complex elderly gentleman. # Acute chest tightness/shortness of breath: - Chest CT: Bilateral multifocal pneumonia, worse in the right lower lobe. Small parapneumonic effusion. Trace left pleural effusion. - Per Dr Jackson, current antibiotics (above) adequate - Taper O2 as able (not on home oxygen) - Given recent cardiac studies including echo/stress test 2 week prior with negative result further cardiac work up deffered at this time, but may consider if symptoms persist. - Does have cardiomegaly and pedal edema with recent IVF, will give dose of IV lasix (Echo Oct 2016: Left Ventricle: Apical hypertrophy is present. 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 The left ventricular ejection fraction is grossly normal. There is basal inferior wall severe hypokinesis. There is mid inferior wall severe hypokinesis. There is left ventricular diastolic dysfunction.) # Atrial Fibrillation: - Given no evidence of active bleeding, was restarted on Warfarin therapy, dosing as per pharmacy. - Pt monitored on telemetry #. Vascular disease, Hypertension, Hyperlipidemia: - Continue home statin, blood pressure medications, and Aspirin at home dosages. - No acute interventions needed at this time. # Tobacco dependence - Offered Nicoderm but pt declined. - Counselled on benefits of cessation, especially in the setting of such severe heart and peripheral vascular disease, but pt not interested in further support at this time. GI Prophylaxis: Not indicated VTE Prophylaxis: Theraputic Anticoag with Warfarin, SCDs (bilateral SCDs), Other (ASA 325 mg EC by mouth twice a day 6 weeks plus warfarin while in-house. ) VTE Mechanical Devices: Intermittant Pneumatic CD Resuscitation Status: CPR: Attempt Resuscitation Carline White MD Dec 24, 2016 15:14
[2016-12-24] MEDS ORDERED: Furosemide 10 mg/mL 4 mL Inj IVPUSH ONE (15:30)
--- NOTE | 2016-12-24 18:46 | NUR ---
Activity Patient up with SBA/cane to BR. Unsteady on feet. Up to chair for meals. Denied pain and nausea this shift. Patient repositions self for comfort. Call light and tray table within reach. Will continue to monitor patient hourly.
[2016-12-25] VITALS (9 sets, daily range): BP systolic 137–164; BP diastolic 81–96; PULSE 61–84; RESP 16–18; O2SAT 93–99
--- NOTE | 2016-12-25 04:02 | NUR ---
Mobility / mentation / respiratory Ambulates in room with very unsteady gait; encouraged to use cane, needs multiple reminders to keep right hand non-weight bearing. Pt is impulsive and does not use call light, tone alarm in bed and chair for safety but pt does not wait for staff assistance and remains a high risk for falls. In all other ways pt is age appropriate and oriented. Respiratory status improved over last night, SOB only with activity, O2 sats >92% on room air. Hourly rounding ongoing.
[2016-12-25 06:30] LABS: INR 1.91 ratio
--- NOTE | 2016-12-25 09:03 | PCM.PHAPRO ---
Progress Date of Service: Dec 25, 2016 Warfarin management per pharmacy Indication: atrial fibrillation INR goal: 2-3 Home warfarin dose: 1.25 on Mon/Fri, 2.5 on all other days of the week. -Dec 24-Dec 25-Dec 2.20 1.75 1.91 -0.55 -0.45 0.16 2.5mg 3 MG 2.5 INR is subtherapeutic but trending up. Likely due to held/decreased doses for supratherapeutic INR. Will order home dose tonight Give warfarin 2.5 mg PO once this evening at 1700. Pharmacy to continue to monitor and dose warfarin daily. Thank you, [facility] Pharmacist Fanny Castellon PharmD Dec 25, 2016 09:03
[2016-12-25] MEDS ORDERED: Furosemide 10 mg/mL 4 mL Inj IVPUSH ONE (09:15)
--- NOTE | 2016-12-25 09:22 | PCM.PNMED ---
Subjective Date of Service Dec 25, 2016 Subjective Oxygen has been discontinued and even without it he is less short of breath 2 days ago. His main concern today, other than the hand, it is the swelling in his legs. The left seems worse than the right but he says it is the right leg that have all the procedures. In the past he would occasionally get some swelling in the left but just around the ankle. Exam Vital Signs Vital Sign - Last Date Time Temp Pulse Resp B/P Pulse Ox O2 Delivery O2 Flow Rate FiO2 12/25/16 05:37 83 12/25/16 05:25 36.5 16 150/92 99 Room Air 12/24/16 20:40 2.00 Intake and Output 12/24/16 12/24/16 12/25/16 Cumulative From/Thru 15:00 23:00 07:00 12/21/16 15:23 - 12/25/16 06:29 Intake Total 600 ml 400 ml 8517 ml Output Total 600 ml 640 ml 4420 ml Balance 0 ml -240 ml 4097 ml Intake Oral 600 ml 400 ml 4221 ml IV Total 4296 ml Output Urine Total 600 ml 640 ml 4420 ml # Voids 5 # Bowel Movements 1 1 3 Exam General: Alert and oriented, no acute distress Heart: Regular Lungs: Few inspiratory crackles in both bases posteriorly Abdomen: Soft, non-tender Extremities: Overall pedal edema seems some improved. It is trace on the right , on the left 1-2+ at the ankle and then trace closer to the knee. IVs and Medications Medications Reviewed: Medications were reviewed in detail Lab and Diagnostics Result Diagram: 12/24/16 0630 12/23/16 0550 Assessment & Plan 81 YO M with known vasculopathy presenting with 2 week history of protracted infection of hand, now S/P I&D, admitted for continued IV therapy following failure of oral antibiotics. # Hand cellulites with abscess, S/L drainage Postop day #4 from right hand I&D performed on 12/21/[address] Dr[address] Cisneros has performed a needle biopsy at the dorsal fifth metacarpophalangeal joint yesterday on 12/23/2016 and results from this are pending Nonweightbearing of the right upper extremity at this point. Wound care - daily dressing changes and packing changes at the right dorsal hand. Patient states ortho is planning to visit today and re-examine hand Ortho: antibiotics as per Dr. Jackson in consult. ID, Dr Jackson recommendations as per 12/24: 1. Will go ahead and switch his IV vancomycin which is a very high dose and somewhat concerning in an older gentleman. Will switch it to Zyvox 600 p.o. b.i.d. which should be excellent for his hand infection. Will also provide gram-positive coverage for any pneumonia. 2. In the short run, will continue with the ceftriaxone he has been receiving as this will provide some gram-negative coverage for a possible pulmonary process. 3. I would think the patient should be observed in the hospital at least a couple more days because of his ongoing pulmonary as well as hand processes. 4. It may be reasonable to do an ultrasound and consider tapping his pleural effusion if that has never been done in this complex elderly gentleman. # Acute chest tightness/shortness of breath: - Chest CT: Bilateral multifocal pneumonia, worse in the right lower lobe. Small parapneumonic effusion. Trace left pleural effusion. - Per Dr Jackson, current antibiotics (above) adequate - Has Tapered off O2 (not prev on home oxygen) - Given recent cardiac studies including echo/stress test 2 week prior with negative result further cardiac work up not pursued - cardiomegaly and pedal edema (worse after IVF) with hx chr Diastolic CHF and LV wall motion abnl, Weight decreased 2.2 kg overnight after Lasix IV 40 mg although not much urine output recorded. Will repeat this am and then tomorrow began Lasix 20 mg daily. Blood pressure elevated so we will also start lisinopril 2.5 mg daily - check BMP today (Echo Oct 2016: Left Ventricle: Apical hypertrophy is present. 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 The left ventricular ejection fraction is grossly normal. There is basal inferior wall severe hypokinesis. There is mid inferior wall severe hypokinesis. There is left ventricular diastolic dysfunction.) # Atrial Fibrillation: - Given no evidence of active bleeding, was restarted on Warfarin therapy, dosing as per pharmacy. - Pt monitored on telemetry #. Vascular disease, Hypertension, Hyperlipidemia: - Continue home statin, blood pressure medications, and Aspirin at home dosages. - As noted above will add low-dose lisinopril. # Tobacco dependence - Offered Nicoderm but pt declined. - Counselled on benefits of cessation, especially in the setting of such severe heart and peripheral vascular disease, but pt not interested in further support at this time. Disposition: Possible discharge home tomorrow depending on findings by orthopedist when he reexamines hand GI Prophylaxis: Not indicated VTE Prophylaxis: Theraputic Anticoag with Warfarin, SCDs (bilateral SCDs), Other (ASA 325 mg EC by mouth twice a day 6 weeks plus warfarin while in-house. ) VTE Mechanical Devices: Intermittant Pneumatic CD Resuscitation Status: CPR: Attempt Resuscitation Carline White MD Dec 25, 2016 09:22
[2016-12-25] MEDS: cefTRIAXone Inj 2,000 MG in Dextrose 5% Minibag Plus 50 ML IV SCH (09:36)
--- NOTE | 2016-12-25 11:50 | NUR ---
KESHA signed by pt RUPERTO Alvarado
--- NOTE | 2016-12-25 12:22 | NUR ---
Social Work - Readiness for Discharge Data and Assessment: EMR Reviewed. Pt is on day 4 of hospitalization admitted for right hand abscess, cellulitis per H&P. PT recommends PT through HH upon discharge. SW met with pt regarding discharge planning. Pt will be discharging home when medically stable. Pt will resume [facility] with RN/PT/OT. SW will need to notify [facility] at discharge and fax resume orders. [facility] has seen patient and recommends oral ABX at discharge. Pt will transport home via POV with son or daughter. SW will continue to follow. Plan: Pt will be discharged home when medically stable via POV. Pt will need resume HH orders with [facility] for RN/PT/OT. SW will fax these to [facility] at discharge. SW will continue to follow. RUPERTO Alvarado
[2016-12-25] MEDS ORDERED: Potassium Chloride 20 mEq SR Tablet PO ONE (13:10)
--- NOTE | 2016-12-25 16:42 | PCM.PNORTH ---
Subjective Date of Service: Dec 25, 2016 Visit Information: Reason for Visit Right Hand Abscess, Cellulitis Surgery/Surgery Date I&D right hand 12/21/16 & 12/23/16 Post-Op Day # 4 Date of Admission: Dec 21, 2016 at 17:42 Hospital Day # Subjective The patient is an 81 YO male with a history of right hand cellulitis & abscess, pneumonia, cardiomegaly and CAD. The right hand wounds have been irrigated and packed QDay by nursing. Cultures from 12/21 & 12/23 have been No Growth after 48 hours and no organisms seen. Patient reports minimal pain. He has full motion of the digits. He is on linezolid PO & cefriaxone IV. Patient states he is tired of being here and really wants to go home on Tuesday. Postop General: No Shortness of Breath (no shortness of breath on 4-5 L O2), No Chest Pain, Good Appetite Pain Management: PO, No or Minimal Pain Objective Exam Objective Patient is seen sitting up at bedside Vital Signs and I/O Vital Sign - Last Date Time Temp Pulse Resp B/P Pulse Ox O2 Delivery O2 Flow Rate FiO2 12/25/16 13:30 61 16 95 Room Air 12/25/16 12:57 36.4 137/86 12/24/16 20:40 2.00 Intake and Output 12/24/16 12/24/16 12/25/16 Cumulative From/Thru 15:00 23:00 07:00 12/21/16 15:23 - 12/25/16 06:29 Intake Total 600 ml 400 ml 8517 ml Output Total 600 ml 640 ml 4420 ml Balance 0 ml -240 ml 4097 ml Intake Oral 600 ml 400 ml 4221 ml IV Total 4296 ml Output Urine Total 600 ml 640 ml 4420 ml # Voids 5 # Bowel Movements 1 1 3 Lab & Micro Results Laboratory Tests Test 12/25/16 05:50 12/25/16 10:05 Prothrombin Time 20.7sec (8.1-12.5) Prothromb Time International Ratio 1.91ratio Sodium Level 140mEq/L (134-144) Potassium Level 3.4mEq/L (3.5-5.2) Chloride Level 101mEq/L (97-108) Carbon Dioxide Level 23mmol/L (18-29) Blood Urea Nitrogen 23mg/dL (8-27) Creatinine 1.07mg/dL (0.76-1.27) Estimat Glomerular Filtration Rate 70mL/min (>59) Glucose Level 119mg/dL (60-99) Calcium Level 9.8mg/dL (8.5-10.1) Microbiology 12/21/16 Blood Culture - Preliminary, Resulted No growth at 2 days; culture examined... 12/23/16 Adenovirus DNA (PCR) - Final, Complete Not Detected 12/23/16 Coronavirus 229E PCR - Final, Complete Not Detected 12/23/16 Coronavirus HKU1 PCR - Final, Complete Not Detected 12/23/16 Coronavirus NL63 PCR - Final, Complete Not Detected 12/23/16 Coronavirus OC43 PCR - Final, Complete Not Detected 12/23/16 Influenza Type A (PCR) - Final, Complete Not Detected 12/23/16 Influenza Type B (PCR) - Final, Complete Not Detected 12/23/16 Human Metapneumovirus (PCR) (AMISH) - Final, Complete Not Detected 12/23/16 Rhinovirus (PCR)(AMISH) - Final, Complete Not Detected 12/23/16 Parainfluenza Virus Type 1 (PCR) - Final, Complete Not Detected 12/23/16 Parainfluenza Virus Type 2 (PCR) - Final, Complete Not Detected 12/23/16 Parainfluenza Virus Type 3 (PCR) - Final, Complete Not Detected 12/23/16 Parainfluenza Virus Type 4 (NAAT) - Final, Complete Not Detected 12/23/16 Respiratory Syncytial Virus (PCR)GA - Final, Complete Not Detected 12/23/16 Chlamydia pneumoniae (PCR) - Final, Complete Not Detected 12/23/16 Mycoplasma pneumoniae DNA Detection - Final, Complete 12/24/16 Streptococcus pneumoniae Ag Screen - Final, Complete 12/23/16 Gram Stain - Final, Resulted 12/23/16 Culture & Sensitivity - Preliminary, Resulted 12/23/16 Anaerobic Culture - Preliminary, Resulted Result Diagram: 12/24/16 0630 12/25/16 1005 General Appearance: Alert, Oriented X3, Cooperative, No Acute Distress Extremities: Distal Pulses Palpable Postop Sensory Motor: Distal Motor Intact, Movement in Fingers, NVI Distally SURGICAL WOUND : Wound Location/Description Right hand: dressing and packing are removed. The largest wound has purulent drainage on the packing, slight erythema around the wound. The smaller wounds have small amount purulent drainage on the bandage. Dressing & Drainage Status: Changed (by nurse) Catheters: None Assessment & Plan Impression Right hand cellulitis & abscess Problems: Plan Nonweightbearing of the right upper extremity, elevate hand on pillow Continue with daily dressing changes and irrigation by nursing Cntinue with antibiotics per Dr. Jackson Hospitalist will continue workup and treatment on patient's respiratory issues. Patient will Continue ASA 325 mg daily and warfarin is also on board per hospitalist service with dosing by pharmacy. Orthopedics Thanks hospitalist service and Dr. Jackson from infectious disease for their help in the medical management of this patient. Anticipate discharge by hospitalist service when results from all biopsies have been finalized and final antibiotic treatment is determined and implemented per Dr. Jackson. Pain Management: Tylenol VTE Prophylaxis: Theraputic Anticoag with Warfarin, SCDs (bilateral SCDs), Other (ASA 325 mg EC by mouth twice a day 6 weeks plus warfarin while in-house. ) Resuscitation Status: CPR: Attempt Resuscitation [place]abel [place] PA-C Dec 25, 2016 16:42
--- NOTE | 2016-12-25 19:22 | NUR ---
Dressing Patient with right hand abscess that was I&D few days ago. Wound red and still oozing some yellowish drainage. Incision repacked with nugauze and rewrapped. Patient anxious today regarding being hospitalized would like to go home. Surgeon in to speak with patient which helped calm him.
--- NOTE | 2016-12-25 22:43 | NUR ---
DSG; c/d/i. Up to the bathroom, reminded pt he needs sba due to nwb right hand etc. Slightly unsteady on his feet. Cane at the bedside. No request for pain rx.
[2016-12-26 00:50] VITALS: BP 131/92; PULSE 67; RESP 16; O2SAT 92
--- NOTE | 2016-12-26 02:49 | NUR ---
[employer]; reports: afib/flutter 74 with pvc's.
[2016-12-26 05:35] VITALS: PULSE 86
[2016-12-26 05:40] VITALS: BP 156/89; PULSE 72; RESP 18; O2SAT 94
[2016-12-26 06:59] LABS: INR 2.18 ratio
--- NOTE | 2016-12-26 07:43 | PCM.PHAPRO ---
Progress Date of Service: Dec 26, 2016 Warfarin management per pharmacy Indication: atrial fibrillation INR goal: 2-3 Home warfarin dose: 1.25 on Mon/Fri, 2.5 on all other days of the week. -Dec 24-Dec 25-Dec 26-Dec 2.20 1.75 1.91 2.18 -0.55 -0.45 0.16 0.27 2.5mg 3 MG 2.5 2.5 INR is therapeutic .. Will order home dose tonight Give warfarin 2.5 mg PO once this evening at 1700. Pharmacy to continue to monitor and dose warfarin daily. Thank you, [facility] Pharmacist Fanny Castellon PharmD Dec 26, 2016 07:43
--- NOTE | 2016-12-26 08:19 | PCM.PNMED ---
Subjective Date of Service Dec 26, 2016 Subjective Shortness of breath much improved over the last 2 days. Some improvement in left lower leg swelling. Exam Vital Signs Vital Sign - Last Date Time Temp Pulse Resp B/P Pulse Ox O2 Delivery O2 Flow Rate FiO2 12/26/16 05:40 36.8 72 18 156/89 94 Room Air 12/24/16 20:40 2.00 Intake and Output 12/25/16 12/25/16 12/26/16 Cumulative From/Thru 15:00 23:00 07:00 12/21/16 15:23 - 12/26/16 06:51 Intake Total 1100 ml 200 ml 9817 ml Output Total 700 ml 1000 ml 6120 ml Balance 400 ml -800 ml 3697 ml Intake Oral 1100 ml 200 ml 5521 ml IV Total 4296 ml Output Urine Total 700 ml 1000 ml 6120 ml # Voids 1 6 # Bowel Movements 2 3 8 Exam General: Alert and oriented, no acute distress Heart: Sl irreg Lungs: Clear except for some inspiratory crackles in the posterior bases, slight decreased breath sounds in the right base Abdomen: Soft, non-tender Extremities: Trace right pedal edema, pedal edema still at least 1+ of the left foot and ankle but improved proximally, probably trace one half up to the knee IVs and Medications Medications Reviewed: Medications were reviewed in detail Lab and Diagnostics Result Diagram: 12/24/1630 12/26/16 0628 Assessment & Plan 81 YO M with known vasculopathy presenting with 2 week history of protracted infection of hand, now S/P I&D, admitted for continued IV therapy following failure of oral antibiotics. # Hand cellulites with abscess, S/L drainage Postop day #4 from right hand I&D performed on 12/21/[address] Abdullahi Cisneros. Procedure done Dr. Cisneros 12/23/2016 was referred to as a "needle biopsy at the dorsal fifth metacarpophalangeal joint" on subsequent day by ortho PA (and patient also calls it a biopsy) but in reviewing Dr Cisneros's note it appears this was an "I&D" or aspiration of a possible joint abscess. It's not clear he sent any sample to the lab. There is a culture from that day ([facility]) but that is recorded as having been sent by Dr Jackson. Nonweightbearing of the right upper extremity at this point. Wound care - daily dressing changes and packing changes at the right dorsal hand. Examined yesterday by Ortho PA. Ortho: antibiotics as per Dr. Jackson in consult. ID, Dr Jackson recommendations as per 12/24: 1. Will go ahead and switch his IV vancomycin which is a very high dose and somewhat concerning in an older gentleman. Will switch it to Zyvox 600 p.o. b.i.d. which should be excellent for his hand infection. Will also provide gram-positive coverage for any pneumonia. 2. In the short run, will continue with the ceftriaxone he has been receiving as this will provide some gram-negative coverage for a possible pulmonary process. 3. I would think the patient should be observed in the hospital at least a couple more days because of his ongoing pulmonary as well as hand processes. 4. It may be reasonable to do an ultrasound and consider tapping his pleural effusion if that has never been done in this complex elderly gentleman. Will await re-evaluation by Dr Jackson tomorrow (Tuesday) and proceed from there. # c/o increased stool frequency with 4 BM's in past 24 hours which are soft instead of formed, will check stool for C dif # Acute chest tightness/shortness of breath, symptoms now resolved. - Chest CT: Bilateral multifocal pneumonia, worse in the right lower lobe. Small parapneumonic effusion. Trace left pleural effusion. - We will repeat chest x-ray today to make sure no worsening in the para pneumonic effusion - Per Dr Jackson, current antibiotics (above) adequate - Has Tapered off O2 (not prev on home oxygen) - Given recent cardiac studies including echo/stress test 2 week prior with negative result further cardiac work up not pursued - cardiomegaly and pedal edema (worse after IVF) with hx chr Diastolic CHF and LV wall motion abnl, Weight decreased 2.2 kg night before last after Lasix IV 40 mg but back up today after a another dose of IV Lasix yesterday so difficult to tell if diuresed. Today he begins Lasix 20 mg daily. Blood pressure elevated so yesterday started lisinopril 2.5 mg daily, gay given wall motion abnormalities, systolic blood pressure improving. (Echo Oct 2016: Left Ventricle: Apical hypertrophy is present. 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 The left ventricular ejection fraction is grossly normal. There is basal inferior wall severe hypokinesis. There is mid inferior wall severe hypokinesis. There is left ventricular diastolic dysfunction.) # Chronic Atrial Fibrillation: - Given no evidence of active bleeding, was restarted on Warfarin therapy, dosing as per pharmacy. - Rate well controlled, will discontinue telemetry #. Vascular disease, Hypertension, Hyperlipidemia: - Continue home statin, blood pressure medications, and Aspirin at home dosages. - As noted above low-dose lisinopril added yesterday, systolic blood pressure 130s to 150s instead of 150s to 160s # Tobacco dependence - Offered Nicoderm but pt declined. - Counselled on benefits of cessation, especially in the setting of such severe heart and peripheral vascular disease, but pt not interested in further support at this time. Disposition: Possible discharge home tomorrow depending on findings by orthopedist when he reexamines hand GI Prophylaxis: Not indicated VTE Prophylaxis: Theraputic Anticoag with Warfarin, SCDs (bilateral SCDs), Other (ASA 325 mg EC by mouth twice a day 6 weeks plus warfarin while in-house. ) VTE Mechanical Devices: Intermittant Pneumatic CD Resuscitation Status: CPR: Attempt Resuscitation Carline White MD Dec 26, 2016 08:19
[2016-12-26] MEDS ORDERED: 0.9% Sodium Chloride 250 ML ONE (08:43)
[2016-12-26 08:46] VITALS: BP 146/86; PULSE 70; RESP 18; O2SAT 96
[2016-12-26] MEDS: cefTRIAXone Inj 2,000 MG in Dextrose 5% Minibag Plus 50 ML IV SCH (08:49)
--- NOTE | 2016-12-26 09:55 | NUR ---
Off unit To Xray via wheelchair at 09:55. Addendum: 12/26/16 at 1007 by HARRIETT FREEMAN RN Returned at this time.
--- NOTE | 2016-12-26 10:19 | DRSVH ---
PROCEDURE: X-RAY CHEST, TWO VIEWS ([id number]) INDICATIONS: pneumonia w effusion TECHNIQUE: 2 views of the chest were acquired. COMPARISON: [facility], CR, XR CHEST 2VW, 12/23/2016, 9:38. FINDINGS: Surgical changes and devices: None. Lungs and pleura: No pleural effusions or pneumothorax. Opacity in the right lung base and a small r ight-sided pleural effusion have decreased in size, but not completely resolved. Mediastinum: Mediastinal contours are normal. Heart size is normal. Bones and chest wall: No suspicious bony abnormalities. Soft tissues appear unremarkable. IMPRESSION: Resolving right lower lobe pneumonia and parapneumonic effusion. Dictated by: Talisha Sahu MD, PhD on 12/26/2016 at 10:16 Approved by: Talisha Sahu MD, PhD on 12/26/2016 at 10:17
[2016-12-26 13:48] VITALS: BP 132/75; PULSE 62; RESP 16; O2SAT 91
--- NOTE | 2016-12-26 16:07 | PCM.PNORTH ---
Subjective Date of Service: Dec 26, 2016 Visit Information: Reason for Visit Right Hand Abscess, Cellulitis Surgery/Surgery Date right hand I&D 12/21/2016 Post-Op Day # 5 Date of Admission: Dec 21, 2016 at 17:42 Hospital Day # Subjective Minimal complaints. Anxious to go home Postop General: No Shortness of Breath (no shortness of breath on 4-5 L O2), No Chest Pain, Good Appetite Pain Management: PO, No or Minimal Pain Objective Exam Objective Patient is seen sitting up in bed Vital Signs and I/O Vital Sign - Last Date Time Temp Pulse Resp B/P Pulse Ox O2 Delivery O2 Flow Rate FiO2 12/26/16 14:15 Room Air 12/26/16 13:48 36.2 62 16 132/75 91 12/24/16 20:40 2.00 Intake and Output 12/25/16 12/25/16 12/26/16 Cumulative From/Thru 15:00 23:00 07:00 12/21/16 15:23 - 12/26/16 06:51 Intake Total 1100 ml 200 ml 9817 ml Output Total 700 ml 1000 ml 6120 ml Balance 400 ml -800 ml 3697 ml Intake Oral 1100 ml 200 ml 5521 ml IV Total 4296 ml Output Urine Total 700 ml 1000 ml 6120 ml # Voids 1 6 # Bowel Movements 2 3 8 Lab & Micro Results Laboratory Tests Test 12/26/16 06:28 Prothrombin Time 23.7sec (8.1-12.5) Prothromb Time International Ratio 2.18ratio Sodium Level 141mEq/L (134-144) Potassium Level 3.6mEq/L (3.5-5.2) Chloride Level 103mEq/L (97-108) Carbon Dioxide Level 22mmol/L (18-29) Blood Urea Nitrogen 28mg/dL (8-27) Creatinine 1.24mg/dL (0.76-1.27) Estimat Glomerular Filtration Rate 59mL/min (>59) Glucose Level 100mg/dL (60-99) Calcium Level 9.9mg/dL (8.5-10.1) Microbiology 12/21/16 Blood Culture - Preliminary, Resulted No growth at 2 days; culture examined... 12/23/16 Adenovirus DNA (PCR) - Final, Complete Not Detected 12/23/16 Coronavirus 229E PCR - Final, Complete Not Detected 12/23/16 Coronavirus HKU1 PCR - Final, Complete Not Detected 12/23/16 Coronavirus NL63 PCR - Final, Complete Not Detected 12/23/16 Coronavirus OC43 PCR - Final, Complete Not Detected 12/23/16 Influenza Type A (PCR) - Final, Complete Not Detected 12/23/16 Influenza Type B (PCR) - Final, Complete Not Detected 12/23/16 Human Metapneumovirus (PCR) (AMISH) - Final, Complete Not Detected 12/23/16 Rhinovirus (PCR)(AMISH) - Final, Complete Not Detected 12/23/16 Parainfluenza Virus Type 1 (PCR) - Final, Complete Not Detected 12/23/16 Parainfluenza Virus Type 2 (PCR) - Final, Complete Not Detected 12/23/16 Parainfluenza Virus Type 3 (PCR) - Final, Complete Not Detected 12/23/16 Parainfluenza Virus Type 4 (NAAT) - Final, Complete Not Detected 12/23/16 Respiratory Syncytial Virus (PCR)WV - Final, Complete Not Detected 12/23/16 Chlamydia pneumoniae (PCR) - Final, Complete Not Detected 12/23/16 Mycoplasma pneumoniae DNA Detection - Final, Complete 12/24/16 Streptococcus pneumoniae Ag Screen - Final, Complete 12/23/16 Gram Stain - Final, Resulted 12/23/16 Culture & Sensitivity - Preliminary, Resulted 12/23/16 Anaerobic Culture - Preliminary, Resulted Result Diagram: 12/24/16 0630 12/26/16 0628 General Appearance: Alert, Oriented X3, Cooperative, No Acute Distress Extremities: Distal Pulses Palpable, Warm Postop Sensory Motor: Movement in Fingers, NVI Distally SURGICAL WOUND : Dressing & Drainage Status: Changed (by nurse) Catheters: None Assessment & Plan Impression Right hand cellulitis and abscesses Problems: Plan Nonweightbearing of the right upper extremity, elevate hand on pillow Continue with daily dressing changes and irrigation by nursing Continue with antibiotics per Dr. Jackson Orthopedics Thanks hospitalist service and Dr. Jackson from infectious disease for their help in the medical management of this patient. Anticipate discharge by hospitalist service when results from cultures have been finalized and final antibiotic treatment is determined and implemented per Dr. Jackson. Ortho will sign off for now. Please rocael us if wounds should look worse. Pain Management: not taking anything VTE Prophylaxis: Theraputic Anticoag with Warfarin, SCDs (bilateral SCDs), Other (ASA 325 mg EC by mouth twice a day 6 weeks plus warfarin while in-house. ) Resuscitation Status: CPR: Attempt Resuscitation [place] PA-C Dec 26, 2016 16:07
[2016-12-26 20:30] VITALS: BP 144/97; PULSE 67; RESP 16; O2SAT 95
--- NOTE | 2016-12-26 22:41 | NUR ---
ACTIVITY; ambulated in hallway this pm per cane= tolerated well. Alert and oriented. Dressing c/d/i. No acute sob noted.
--- NOTE | 2016-12-27 05:21 | NUR ---
PSYCH; alert and oriented. Dozed off and on during the night.
[2016-12-27 06:00] VITALS: BP 154/76; PULSE 84; RESP 18; O2SAT 95
[2016-12-27 06:39] LABS: INR 2.19 ratio
[2016-12-27] MEDS: cefTRIAXone Inj 2,000 MG in Dextrose 5% Minibag Plus 50 ML IV SCH (08:44)
--- NOTE | 2016-12-27 11:15 | PCM.PHAPRO ---
Progress Date of Service: Dec 27, 2016 Warfarin management per pharmacy Indication: atrial fibrillation INR goal: 2-3 Home warfarin dose: 1.25 on Mon/Fri, 2.5 on all other days of the week. Pertinent info: - s/p I+D for right hand cellulitis/abscess. Date Dec 07-Sep 24-Dec 24-Dec 25-Dec 26-Dec 27-Dec INR 3.24 2.75 2.20 1.75 1.91 2.18 2.19 INR change -0.49 -0.55 -0.45 0.16 0.27 0.01 Warf Dose 2 2.5mg 3 MG 2.5 2.5 XXXXXX INR is therapeutic and stable. Give warfarin 3 mg PO once this evening at 1700. Pharmacy to continue to monitor and dose warfarin daily. Thank you, Elliott Jarvis Pharmacist Elliott Jarvis Dec 27, 2016 11:15
[2016-12-27 13:45] VITALS: BP 127/84; PULSE 89; RESP 17; O2SAT 92
--- NOTE | 2016-12-27 14:28 | NUR ---
mentation Apparently pts mentation has improved quite a bit, but he is still slightly mixed up, for example talking to his son on the call light, thinking it was a telephone. Son, Arthur, is concerned a bit, he had some delirium during his last hospital stay also, and ended up staying with someone for a few days until he cleared up mentally. He lives alone. [facility] is going to try to get that set up again for discharge. SW notified and they will be in contact with son.
--- NOTE | 2016-12-27 14:38 | NUR ---
Social Work - Readiness for Discharge Data: EMR Reviewed. Pt is on day 6 of hospitalization for right hand abscess, cellulitis per H&P. PT recommends home with HH. Pt will need [facility] orders for RN,PT,and OT at discharge. SW will need to notify [facility] at discharge and fax resume orders. DOMINIQUE updated by bedside RN that kevin Gibson would like a call. DOMINIQUE called Kevin Gibson [phone] and left message requesting a return call. Anticipate pt to return home on oral abx. Pt's family to provide transport home. SW will continue to follow. Assessment:Pt to benefit from [facility]. Plan: Pt to discharge home when medically stable via POV. PT has cleared pt for home with HH services. Pt is open with [facility] for RN,PT,and OT. DOMINIQUE called kevin Gibson and left a message. SW will continue to follow. RUPERTO Kim
--- NOTE | 2016-12-27 14:50 | NUR ---
Wound Care Patient seen at bedside for wound care of his right dorsal hand wounds. Patient is s/p ER I&D of hand on 12/[address] Cisneros. Packing removed from the 2 packable wounds, today the most proximal of the three wounds continue to track distally 2.5 cms but does not communicate with the distal wound. The distal wound does continue to communicate with the small opening over the 5th knuckle. These wounds were all irrigated with saline and then repacked with packing strips. Will change dressing tomorrow and most likely discontinue packing so wounds can drain freely and tunneling can close;
--- NOTE | 2016-12-27 16:19 | PCM.PNMED ---
Subjective Date of Service Dec 27, 2016 Subjective Denies any new issues/complaints Exam Vital Signs Vital Sign - Last Date Time Temp Pulse Resp B/P Pulse Ox O2 Delivery O2 Flow Rate FiO2 12/27/16 13:45 36.4 89 17 127/84 92 Room Air 12/24/16 20:40 2.00 Intake and Output 12/26/16 12/26/16 12/27/16 Cumulative From/Thru 15:00 23:00 07:00 12/21/16 15:23 - 12/27/16 04:01 Intake Total 51 ml 900 ml 53364 ml Output Total 1150 ml 7270 ml Balance 51 ml -250 ml 3498 ml Intake Oral 900 ml 6421 ml IV Total 51 ml 4347 ml Output Urine Total 1150 ml 7270 ml # Voids 6 # Bowel Movements 2 10 General: Alert, Cooperative, No Acute Distress Head: Normal Eyes: Scleral Anicteric Nose: Mucous Membr Moist/[place] Mouth: Mucous Membr Moist/[place] Neck: Supple Chest & Lungs: Chest Wall Normal, Clear to auscultation & percussion Cardiovascular: Regular Rate/Rhythm Pulses: NL carotid, radial, femoral, DP, PT Abdomen: Non-tender, Non-distended, Normoactive bowel tones, Soft Extremities: No cyanosis/clubbing/edma bilat, Other (left hand in dressing) Neurological: Grossly Neurologically Intact, Normal Speech IVs and Medications Medications Reviewed: Medications were reviewed in detail Lab and Diagnostics Result Diagram: 12/24/1662912/26/16 0628 Assessment & Plan 81 YO M with known vasculopathy presenting with 2 week history of protracted infection of hand, now S/P I&D, admitted for continued IV therapy following failure of oral antibiotics. # Acute right hand cellulites with abscess, present on admission. Improving - Post bedside Incision and Drainage (I&D) in the emergency department on 12/[address] Abdullahi Cisneros. - Appreciate ID and ortho consults. Will followup with recommendations. - Nonweightbearing of the right upper extremity at this point. - Wound care - daily dressing changes and packing changes at the right dorsal hand. - IV vancomycin changed to Zyvox 600 p.o. b.i.d. for coverage of both hand infection and possible pneumonia. # Acute chest tightness/shortness of breath, not present on admission. Symptoms now resolved. - Chest CT: Bilateral multifocal pneumonia, worse in the right lower lobe. Small parapneumonic effusion. Trace left pleural effusion. - Repeat chest x-ray 12/26: "Resolving right lower lobe pneumonia and parapneumonic effusion." - Also on Ceftriaxone per ID recommendations for possible pneumonia # Chronic cardiomegaly and pedal edema with history of chronic diastolic CHF. Stable - Continue with current meds # Chronic Atrial Fibrillation. Rate controlled - Given no evidence of active bleeding, was restarted on Warfarin therapy, dosing as per pharmacy. - Followup daily INR # History of vasculopathy. Stable - Continue Aspirin and Statin # History of Hypertension. Stable. # Hyperlipidemia - Continue home statin # Tobacco dependence - Offered Nicoderm but pt declined. - Per earlier notes: "Counselled on benefits of cessation, especially in the setting of such severe heart and peripheral vascular disease, but pt not interested in further support at this time." Disposition: Possible discharge home tomorrow GI Prophylaxis: Not indicated VTE Prophylaxis: Theraputic Anticoag with Warfarin, SCDs (bilateral SCDs), Other (ASA 325 mg EC by mouth twice a day 6 weeks plus warfarin while in-house. ) VTE Mechanical Devices: Intermittant Pneumatic CD Resuscitation Status: CPR: Attempt Resuscitation Trent Thomas Dec 27, 2016 16:19 - Continue home statin, blood pressure medications, and Aspirin at home dosages. - As noted above low-dose lisinopril added yesterday, systolic blood pressure 130s to 150s instead of 150s to 160s # Tobacco dependence - Offered Nicoderm but pt declined. - Counselled on benefits of cessation, especially in the setting of such severe heart and peripheral vascular disease, but pt not interested in further support at this time. Disposition: Possible discharge home tomorrow depending on findings by orthopedist when he reexamines hand GI Prophylaxis: Not indicated VTE Prophylaxis: Theraputic Anticoag with Warfarin, SCDs (bilateral SCDs), Other (ASA 325 mg EC by mouth twice a day 6 weeks plus warfarin while in-house. ) VTE Mechanical Devices: Intermittant Pneumatic CD Resuscitation Status: CPR: Attempt Resuscitation Trent Thomas Dec 27, 2016 16:19
--- NOTE | 2016-12-27 16:26 | PROG NOTE ---
[address] [address] PROGRESS NOTE PATIENT: BERNY EARLY : 1935 MR#: [id number] ADMIT: 12/21/2016 JOB ID: [id number] DATE: 12/27/2016 REASON FOR FOLLOWUP: Right hand infection secondary to infiltrated IV which occurred a few weeks ago at [facility] and more recently right-sided pulmonary infiltrate with pleural effusion. INTERVAL HISTORY: Over the weekend, the patient has improved, if anything. He states he has no fevers, chills, or sweats. He has less shortness of breath. Minimal or no cough. His right dorsal hand is painless but still has undermined tracks across the ulnar dorsal side of the hand. No GI symptoms. No nausea, vomiting, diarrhea. No dysuria. PHYSICAL EXAMINATION: Includes temperature 36.4. He has been afebrile for his entire stay in the hospital. Pulse 89, respiratory rate 17, blood pressure 127/84, saturating reasonably well on room air. He is in no acute distress today. He is awake and alert. His oral cavity unremarkable. His lungs with very few crackles at the right base but not impressive at all. Cardiac tones without change. Abdomen soft and nontender. His right hand was carefully examined with Jv Montalvo from wound management. There are the same tracks along the ulnar aspect of the dorsal right hand. There is no purulence at all, interestingly, within these tracks, though there are just areas of devitalized tissue, through which Mr. Montalvo easily puts a wooden Q-tip probe. LABORATORIES: Include white count 8000, creatinine 1.24. Urine Legionella and pneumococcal antigens are negative. Streptozyme has come back negative. C. diff negative. Respiratory viral PCR panel negative. MRSA screen of the nares negative. IMAGING: Includes a chest x-ray done yesterday which we compared to prior films and carefully examined. It shows resolving right lower lobe infiltrate and effusion. IMPRESSION: This is an odd case of a gentleman who was at [facility] for some vascular surgery and developed a right hand inflammatory process where a peripheral IV had been placed. He was treated as an outpatient with Keflex followed by clindamycin, and when he was admitted here, some rather purulent material was obtained from the dorsum of his right hand, but the culture there was negative and I suspect it is negative because of antibiotic pretreatment with the clindamycin. In any event, the patient was improving on ceftriaxone and linezolid, when it was discovered he had an increasing right pleural effusion and infiltrate. He has now been observed over the weekend and is actually going the other direction with chest x-ray showing improvement in his right lung and overall improved clinical appearance. What to make of this from an overall clinical point of view is unclear. It is certainly possible that he has now received enough antibiotics that any initial infection in his right dorsal hand has been resolved. It is also possible that some of what looked like cellulitis of the right hand is due to irritating or sclerosing agents which may have infiltrated his right dorsal hand while he had the IV at [facility]. We have no way to prove that. His pulmonary process seems almost noninfectious and I wonder if what we are looking at is more atelectasis with effusion secondary to congestive heart failure or some other process, but in any event, he certainly does not look infected from a respiratory point of view. RECOMMENDATIONS: 1. I would continue the linezolid and ceftriaxone through tomorrow, which will be his 7th hospital day. 2. I think the patient could reasonably be discharged tomorrow and could resume the clindamycin orally he had at home to finish maybe 3-5 more days of oral therapy with clindamycin. 3. He will need outpatient wound followup and we can do the outpatient wound followup for management of his hand. 4. Will see the patient tomorrow prior to discharge.
[2016-12-27 20:57] VITALS: BP 163/92; PULSE 68; RESP 18; O2SAT 97
[2016-12-28 03:01] VITALS: PULSE 61; RESP 16; O2SAT 95
--- NOTE | 2016-12-28 03:45 | NUR ---
mentation pt has been alert and oriented this shift. he does occasionally have moments were he appears confused. he woke up at one point in the night and insisted he had been calling for help for hours, even though nurse had been charting right out side his room and could see he had been sleeping. he also stated all of his blankets were wet when they were in fact dry. [employer] got pt all new bedding and helped get him comfortable in bed again and he went back to sleep without further incident. pt has ambulating in room with his cane and is steady on his feet and only needs minor set up assist for most care. care continues.
[2016-12-28 05:55] VITALS: BP 148/80; PULSE 70; RESP 16; O2SAT 96
[2016-12-28 06:15] LABS: INR 3.18 ratio
--- NOTE | 2016-12-28 09:10 | NUR ---
KESHA signed by pt RUPERTO Alvarado
[2016-12-28] MEDS: cefTRIAXone Inj 2,000 MG in Dextrose 5% Minibag Plus 50 ML IV SCH (10:03)
--- NOTE | 2016-12-28 10:30 | PCM.PHAPRO ---
Progress Date of Service: Dec 28, 2016 Warfarin management per pharmacy Indication: atrial fibrillation INR goal: 2-3 Home warfarin dose: 1.25 on Mon/Fri, 2.5 on all other days of the week. Pertinent info: - s/p I+D for right hand cellulitis/abscess. - Antibiotic treatment: ceftriaxone, linezolid. Date Dec 24-Dec 25-Dec 26-Dec 27-Dec 28-Nov INR 2.20 1.75 1.91 2.18 2.19 3.18 INR change -0.55 -0.45 0.16 0.27 0.01 0.99 Dose 2.5mg 3 MG 2.5 2.5 3 MG xxxxxx INR is supratherapeutic and trending up. INR had been stable for several days but now trending up for unclear reasons. Hold warfarin this evening. Pharmacy to continue to monitor and dose warfarin daily. Thank you, Elliott Jarvis Pharmacist Elliott Jarvis Dec 28, 2016 10:30
--- NOTE | 2016-12-28 10:32 | NUR ---
Social Work: Continued Discharge Planning Data: See readiness for discharge note. Pt is on day 7 of hospitalization and will be discharged today resuming [facility] with RN/PT/OT. DOMINIQUE spoke with son Arthur regarding discharge plan. Arthur will provide transportation home today at time of discharge. Pt and son agreeable to plan. Assessment: Pt who will resume [facility] for RN/PT/OT at baseline. Plan: Pt will discharge today with OABX and resume [facility] with RN/PT/OT. RUPERTO Alvarado
--- NOTE | 2016-12-28 10:45 | NUR ---
Wound Care Patient seen at bedside for wound care of his right hand. 3 small dorsal ulcers remain open and are draining minimally scant serous fluid on packing strips removed today. While wounds still track and undermine the skin it is felt prudent to discontinue packing at this time as it may be a detriment to these tracks closing. Wounds were cleaned with saline today and dressed with an aquacell dressing taped in place with hypafix tape. The hand is no longer swollen and patient to finish his oral antibiotics. Recommend HH irrigate these wounds with saline q 48 hrs and redress with an appropriate absorbent dressing of their choice. Patient to follow up with Dr White at the wound center in [facility] in 2 weeks.
[2016-12-28] MEDS ORDERED: CLIN-78 PO (11:11)
--- NOTE | 2016-12-28 11:16 | PCM.DIMED ---
Discharge Instructions Date of Service Dec 28, 2016 Dates of Hospitalization Dec 21, 2016 at 17:42 Discharge Diagnosis Discharge Diagnosis # Acute right hand cellulites with abscess, present on admission. Improving - Post Incision and Drainage (I&D) # Acute chest tightness/shortness of breath, suspected due to possible acute pneumonia, present on admission. Symptoms now resolved. # Chronic cardiomegaly and pedal edema with history of chronic diastolic CHF. Stable # Chronic Atrial Fibrillation. Rate controlled # Chronic anticoagulation with Coumadin - INR 3.18 on day of discharge # History of vasculopathy. Stable # History of Hypertension. Stable. # Hyperlipidemia. Presumed stable. # Tobacco use Diet Low fat, Low Sodium, Heart Healthy Activity Home Health Phyical Therapy Call your provider Fever or Chills, Shortness of breath, Bleeding, Chest pain, Vomitting, Excessive diarrhea Patient Instructions Seek immediate medical attention if any new or worsening signs or symptoms occur. Follow-up plan 1. Followup with primary care provider (Dr. Travis) tomorrow 12/29/16 at 9:10 AM and to recheck your INR 2. Followup at wound care clinic as instructed Follow-up Provider: [place] Travis Masoud Dec 28, 2016 11:16
--- NOTE | 2016-12-28 11:25 | PROG NOTE ---
[address] [address] PROGRESS NOTE PATIENT: BERNY EARLY : 1935 MR#: [id number] ADMIT: 12/21/2016 JOB ID: [id number] DATE: 12/28/2016 REASON FOR FOLLOW UP: Infection right dorsal hand secondary to infiltrated IV and possible pneumonia. INTERVAL HISTORY: Overnight, the patient reports he has been feeling gradually better. He notes he has no respiratory difficulty fevers, chills or significant cough. He has minimal pain in his right dorsal hand and is preparing to be discharged. No GI symptoms. Labs pending. PHYSICAL EXAMINATION: Temperature 36.6, pulse 70, respiratory rate 16, blood pressure 148/80, saturating well on room air, in no acute distress. Mental status is completely clear. Oral cavity benign. Lungs quite clear with some decreased breath sounds especially at the right base but better each day. No wheezing is heard. Cardiac tones regular rate and rhythm without notable murmur. Abdomen is benign. Right hand was carefully examined with Jv from wound management. There is still some diffuse erythema, but it is nontender along the dorsal right hand and this open tracks as were previously noted. In general, his hand is looking slowly better. LABORATORIES: No new labs since December 24 in terms a white count which was 8000 back then. His creatinine was 1.24. His procalcitonin less than 0.1 and on all those labs are few days old. C. diff turned out to be negative and respiratory PCR panel negative. MRSA PCR negative. Cultures of the hand remain negative. IMPRESSION: This is an extremely confusing case. This gentleman suffered an infiltrating IV in his right dorsal hand while at [facility]. He then started taking oral antibiotics which were initially Keflex later changed to clindamycin and then was admitted here when some purulent material drained out of his right hand. Cultures have been entirely negative; however, and I have seen this wound and examined it closely on numerous occasions. It has never looked terribly infected and bacterial at least in terms of a bacterial infection. He also developed some shortness of breath while here in the hospital and a chest x-ray showed a pulmonary infiltrate which may be infectious, but again he never looked terribly infected from an overall clinical perspective. At this point, he is just now finishing up a week of linezolid and ceftriaxone and I think it would be reasonable to forego additional aggressive broad-spectrum antibiotics. RECOMMENDATIONS: 1. The patient can be discharged later today which is the current plan. 2. The patient still has some residual clindamycin at home from his outpatient prescription prior to admission and I told to go ahead and finish that. He thinks there is three or four days left. The clindamycin should be good coverage for the right dorsal hand infection as I think that is what produced the sterile cultures we obtained when we first debrided it here. 3. Outpatient wound and healthcare followup is being arranged and the patient need not necessarily see me. Though if I am called by the wound management team, once the patient is discharged and I will be happy to see him at any time. Infectious disease will sign off at this time.
--- NOTE | 2016-12-28 14:18 | NUR ---
Social Work: Discharge Data: Pt is on day 7 of hospitalization and will be discharged today resuming [facility] with RN/PT/OT. SW spoke with son Arthur regarding discharge plan. Arthur will provide transportation home today at time of discharge. Pt and son agreeable to plan. Assessment: Pt who will resume [facility] for RN/PT/OT at baseline. Plan: Pt will discharge today with OABX and resume SH[facility] with RN/PT/OT. RUPERTO Alvarado
--- NOTE | 2016-12-28 14:30 | NUR ---
discharged home with son, Arthur, he was going directly to prearranged appt at cardiology at [facility]. He will have appt for INR at Dr Núñez office tomorrow. Coumadin was held today INR 3.18.He has appt arranged with Dr White at wound clinic early January. [facility] will be doing his wound care.
--- NOTE | 2016-12-28 18:04 | PCM.DC.MED ---
Discharge Summary Date of Service Dec 28, 2016 Dates of Hospitalization Date of Hospital Admission Dec 21, 2016 at 17:42 Date of Discharge: Dec 28, 2016 Providers: Admitting Physician: Pavel Figueroa DO Primary Care Physician: Denton Travis DO Attending Physician: Pavel Figueroa DO Diagnosis at Time of Discharge Diagnosis at Time of Discharge # Acute right hand cellulites with abscess, present on admission. Improving - Post Incision and Drainage (I&D) # Acute chest tightness/shortness of breath, suspected due to possible acute pneumonia, present on admission. Symptoms now resolved. # Chronic cardiomegaly and pedal edema with history of chronic diastolic CHF. Stable # Chronic Atrial Fibrillation. Rate controlled # Chronic anticoagulation with Coumadin - INR 3.18 on day of discharge # History of vasculopathy. Stable # History of Hypertension. Stable. # Hyperlipidemia. Presumed stable. # Tobacco use Consultations 1. ID 2. Ortho Procedures XRay, CTs & MRIs Date of Service: 12/23/16 1047 PROCEDURE: CT CHEST WITHOUT CONTRAST ([id number]) IMPRESSION: 1. Bilateral multifocal pneumonia, worse in the right lower lobe. Small parapneumonic effusion. Trace left pleural effusion. 2. 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 3. Cardiomegaly and coronary artery disease. Dictated by: Shree Schulz M.D. on 12/23/2016 at 13:58 Approved by: Shree Schulz M.D. on 12/23/2016 at 14:05 Brief History As noted in H&P by Dr. Figueroa: Pt is an 81 YO male with known history of extensive vascular disease , most recently having intervention on lower extremities in 11/2016 for vascular disease (which sounds like a Fem-pop bypass of right leg, but he is not certain , hospital records from [place], [place] pending), and more remotely endorsing jasmyn of CABG, re-presenting to the ER today following now 2 week history of worsening hand pain and swelling. He had been seen in ER on 2 occasions prior, first receiving Keflex, then advanced to Clindamycin which initially appear effective but swelling again began progressing 3 days prior and he started to note drainage as well. He completed antibiotic course last night, and given condition had not resolved, actually worsening, he decided to return to ER for further evaluation. He notes no fever or chills at least. Actually feeling in overall well during my exam, now S/P surgical drainage of abscess by orthopedist. He is eating a dinner. He denies recent jasmyn of fever/ chills. Denies current chest pains or shortness of breath. Normal stooling, and bladder function. NO other acute complaints. He does note after DC from hospital on 11/2016 for vascular procedure , he had stopped smoking for a couple of weeks, but still of hand swelling caused a partial relapse. Hospital Course # Acute right hand cellulites with abscess, present on admission. Improving - Post bedside Incision and Drainage (I&D) in the emergency department on 12/[address] Abdullahi Cisneros. - Appreciate ID and ortho consults. Will followup with recommendations. - Nonweightbearing of the right upper extremity at this point. - Wound care - daily dressing changes and packing changes at the right dorsal hand. - Finished course of IV vancomycin changed to Zyvox 600 p.o. b.i.d. for coverage of both hand infection and possible pneumonia during this hospital - Per ID recs will go home with PO Clinda for 3-5 more days # Acute chest tightness/shortness of breath, not present on admission. Symptoms now resolved. - Chest CT: Bilateral multifocal pneumonia, worse in the right lower lobe. Small parapneumonic effusion. Trace left pleural effusion. - Repeat chest x-ray 12/26: "Resolving right lower lobe pneumonia and parapneumonic effusion." - Antibiotics as noted above # Chronic cardiomegaly and pedal edema with history of chronic diastolic CHF. Stable - Continue with current meds # Chronic Atrial Fibrillation. Rate controlled - On Coumadin with INR 3.18 by day of discharge # History of vasculopathy. Stable - Continue Aspirin and Statin # History of Hypertension. Stable. # Hyperlipidemia - Continue home statin # Tobacco dependence - Offered Nicoderm but pt declined. - Per earlier notes: "Counselled on benefits of cessation, especially in the setting of such severe heart and peripheral vascular disease, but pt not interested in further support at this time." Exam Vital Signs (Last) Date Time Temp Pulse Resp B/P Pulse Ox O2 Delivery O2 Flow Rate FiO2 12/28/16 05:55 36.6 70 16 148/80 96 Room Air 12/24/16 20:40 2.00 Exam General: Alert, Cooperative, No Acute Distress Head: Normal Eyes: Scleral Anicteric Nose: Mucous Membr Moist/[place] Mouth: Mucous Membr Moist/[place] Neck: Supple Chest & Lungs: Chest Wall Normal, Clear to auscultation bilat Cardiovascular: Regular Rate/Rhythm Pulses: NL carotid, radial, femoral, DP, PT Abdomen: Non-tender, Non-distended, Normoactive bowel tones, Soft Extremities: No cyanosis/clubbing/edema bilat, Other (left hand in dressing) Neurological: Grossly Neurologically Intact, Normal Speech Test 12/21/16 16:37 12/22/16 06:25 12/22/16 10:45 12/23/16 05:50 Erythrocyte Sedimentation Rate 10mm/hr (0-30) Lactic Acid Level 1.2mmol/L (0.4-2.0) C-Reactive Protein 0.4mg/dL (0.0-0.5) Total Bilirubin 0.6mg/dL (0.0-1.2) Aspartate Amino Transf (AST/SGOT) 12U/L (0-50) Alanine Aminotransferase (ALT/SGPT) 8U/L (0-44) Alkaline Phosphatase 107U/L (25-160) Total Protein 5.8g/dL (6.4-8.4) Albumin 3.3g/dL (3.4-5.0) Urine Color Yellow (YELLOW) Urine Appearance Hazy (CLEAR,HAZY) Urine pH 7.0 (5.0-8.0) Urine Specific [place] 1.020 (1.003-1.035) Urine Protein 30mg/dL (NEG,TRACE) Urine Glucose (UA) Negativemg/dL (NEGATIVE) Urine Ketones Negativemg/dL (NEGATIVE) Urine Occult Blood Negative (NEGATIVE) Urine Nitrite Negative (NEGATIVE) Urine Bilirubin Negative (NEGATIVE) Urine Urobilinogen Normalmg/dL (NORMAL) Urine Leukocyte Esterase Negative (NEGATIVE) Urine RBC 3-10/hpf (0-2) Urine WBC 0-5/hpf (0-5) Urine Epithelial Cells Occasional/hpf (NONE-MOD) Urine Crystals None seen (NONE SEEN) Urine Bacteria None/hpf (NONE-FEW) Urine Hyaline Casts Occasional/lpf (NONE) Urine Granular Casts None seen (NONE SEEN) Urine Waxy Casts None seen (NONE SEEN) Urine Red Blood Cell Casts None seen (NONE SEEN) Urine White Blood Cell Casts None seen (NONE SEEN) Urine Mucus None seen (None Seen) Urine Trichomonas None seen (NONE SEEN) Urine Yeast None (NONE SEEN) Urinalysis Comment None Urine Culture Reflexed Not indicated Streptozyme 21.6IU/mL (0.0-200.0) Test 12/23/16 11:24 12/24/16 01:15 12/24/16 06:30 12/26/16 06:28 Procalcitonin 0.09ng/mL (0.00-0.08) Urine Legionella pneumophilia Ag Negative (Negative) White Blood Count 8.0th/mm3 (3.8-10.1) Red Blood Count 4.36mil/mm3 (4.40-5.80) Hemoglobin 14.2g/dL (13.8-17.2) Hematocrit 43.8% (41.0-50.0) Mean Corpuscular Volume 100.5fL (81-100) Mean Corpuscular Hemoglobin 32.6pg (27.0-35.0) Mean Corpuscular Hemoglobin Concent 32.4% (32.0-37.0) Red Cell Distribution Width 15.2% (12.3-15.4) Platelet Count 277bil/L (150-400) Neutrophils (%) (Auto) 72.9% (40-74) Lymphocytes (%) (Auto) 9.6% (14-46) Monocytes (%) (Auto) 14.6% (4-12) Eosinophils (%) (Auto) 2.1% (0-5) Basophils (%) (Auto) 0.6% (0-3) Hematology Comments Sodium Level 141mEq/L (134-144) Potassium Level 3.6mEq/L (3.5-5.2) Chloride Level 103mEq/L (97-108) Carbon Dioxide Level 22mmol/L (18-29) Blood Urea Nitrogen 28mg/dL (8-27) Creatinine 1.24mg/dL (0.76-1.27) Estimat Glomerular Filtration Rate 59mL/min (>59) Glucose Level 100mg/dL (60-99) Calcium Level 9.9mg/dL (8.5-10.1) Test 4/25/17 05:40 Prothrombin Time 34.8sec (8.1-12.5) Prothromb Time International Ratio 3.18ratio Discharge Medications Discharge Medications Aspirin (Aspirin) 325 Mg Tablet 325 MG PO DAILY (Reported) Atenolol (Atenolol) 25 Mg Tablet 25 MG PO BID (Reported) Cholecalciferol (Vitamin D3) (Vitamin D3) 2,000 Unit Capsule 2,000 UNIT PO DAILY (Reported) Clindamycin (Clindamycin) 300 Mg Capsule 300 MG PO QID Prescribed by: BECKY BARRETO MD Cyanocobalamin (Cyanocobalamin Injection) 1,000 Mcg/1 Ml Vial 1 DOSE INJ every month (Reported) Melatonin/Pyridoxine (Melatonin 5 mg Tablet) 1 Each Tablet 1 EACH PO HS ( Reported) Simvastatin (Simvastatin) 40 Mg Tablet 40 MG PO HS (Reported) Warfarin Sodium (Warfarin Sodium) 2.5 Mg Tablet 2.5 MG PO ,,,, ( Reported) Warfarin Sodium (Warfarin Sodium) 2.5 Mg Tablet 1.25 MG PO tuesday and tuesday ( Reported) As needed Acetaminophen (Acetaminophen) 325 Mg Tablet 325-650 MG PO DAILY PRN PRN For Pain (Reported) Loperamide (Loperamide) 2 Mg Capsule 2 MG PO DAILY PRN PRN For Diarrhea or Loose Stool (Reported) Nitroglycerin SL (Nitrostat) 0.4 Mg Tab.subl 0.4 MG SL Q5MIN PRN PRN For Chest Pain (Reported) Followup Plan Disposition: Home with home health Follow-up plan 1. Followup with primary care provider (Dr. Travis) tomorrow 12/29/16 at 9:10 AM and to recheck your INR 2. Followup at wound care clinic as instructed Discharge Diet: Low fat, Low Sodium, Heart Healthy Discharge Activity: Home Health Phyical Therapy Patient Instructions Seek immediate medical attention if any new or worsening signs or symptoms occur. Follow-up Provider: Denton Travis DO Time spent 35 min copies to: Denton Travis Masoud Dec 28, 2016 18:04
== END 2016-12-28 14:36 | disposition home or self-care (01) | DRG 602 ==
LOC: SED 15:20 → OSC 17:42
PROVIDERS: ADMIT Family Medicine; ATTEND Family Medicine
PROC: 0HDFXZZ Extraction of Right Hand Skin, External Approach (ICD-10-PCS; principal; 2016-12-21)
DX: L03.113 Cellulitis of right upper limb (principal); J18.9 Pneumonia, unspecified organism; I10 Essential (primary) hypertension; I25.10 Atherosclerotic heart disease of native coronary artery without angina pectoris; I73.9 Peripheral vascular disease, unspecified; E78.5 Hyperlipidemia, unspecified; F17.200 Nicotine dependence, unspecified, uncomplicated; I48.2 Chronic atrial fibrillation; Z79.82 Long term (current) use of aspirin; Z79.01 Long term (current) use of anticoagulants

== ENCOUNTER 2017-03-04 12:41 | Emergency (ER) | payer MEDICARE ==
[~2017-03-04] VITALS: Ht 177.8 cm; Wt 65.9 kg
[~2017-03-04 12:41] MED LIST changes: +ASPI325T32 PO; +ATEN25TA PO; -CHOL10008 PO; +CHOL200047 PO; +CLIN-78 PO; -COU5 PO; +CYA1000I INJ; -CYAN250014 PO; -CYAN500 SQ; +MELA1TAB16 PO; +SIMV40TA5 PO; -SMV40T PO; -TEN50 PO; +WARF2.5T82 PO
[2017-03-04 13:01] VITALS: BP 134/73; PULSE 69; RESP 20; O2SAT 99
--- NOTE | 2017-03-04 13:37 | ED.REPORT ---
HPI-General Illness Date of Service Mar 04, 2017 ED Provider: Edwar Kelly MD The patient is an 81 year old male with history of hypertension, hyperlipidemia , atrial fibrillation on anticoagulation, coronary artery disease, and peripheral vascular disease, who was sent to the emergency department by his doctor for abnormal lab work (d-dimer 5.21, troponin 0.06, and INR 1.6). The patient has been experiencing shortness of breath and lower left swelling since November. His symptoms are not any different today versus the last few months. He denies chest pain, fever, chills, cough, sputum production, vomiting or diarrhea. He has been taking his Warfarin as prescribed. He was hospitalized at [facility] in November of this year and had surgery for a blocked artery in his lower extremity. Nursing Notes Stated Complaint: SOB Chief Complaint: General Complaint Nursing Notes Reviewed: Yes Allergies: Coded Allergies: Sulfa (Sulfonamide Antibiotics) (Verified Allergy, Unknown, 12/21/16) atorvastatin (Verified Allergy, Unknown, 12/21/16) Scheduled Aspirin (Aspirin) 325 Mg Tablet 325 MG PO DAILY Atenolol (Atenolol) 25 Mg Tablet 25 MG PO BID Cholecalciferol (Vitamin D3) (Vitamin D3) 2,000 Unit Capsule 2,000 UNIT PO DAILY Clindamycin (Clindamycin) 300 Mg Capsule 300 MG PO QID Cyanocobalamin (Cyanocobalamin Injection) 1,000 Mcg/1 Ml Vial 1 DOSE INJ every month Melatonin/Pyridoxine (Melatonin 5 mg Tablet) 1 Each Tablet 1 EACH PO HS Simvastatin (Simvastatin) 40 Mg Tablet 40 MG PO HS Warfarin Sodium (Warfarin Sodium) 2.5 Mg Tablet 2.5 MG PO ,,,, Warfarin Sodium (Warfarin Sodium) 2.5 Mg Tablet 1.25 MG PO tuesday and tuesday Scheduled PRN Acetaminophen (Acetaminophen) 325 Mg Tablet 325-650 MG PO DAILY PRN PRN For Pain Loperamide (Loperamide) 2 Mg Capsule 2 MG PO DAILY PRN PRN For Diarrhea or Loose Stool Nitroglycerin SL (Nitrostat) 0.4 Mg Tab.subl 0.4 MG SL Q5MIN PRN PRN For Chest Pain General Time Seen by MD: 13:29 Chief Complaint Other (abnormal lab work) Hx Obtained From: Patient, Primary care provider Arrived By: Walk-in Sudden in Onset?: No Onset Occurred: More than a week ago... Symptom Duration: Since onset Severity: Current: No pain currently Severity: Maximum: No pain Recent Healthcare: No recent hospitalization, Recent doctor visit Similar Sx Previous: Yes Past Medical History Past Medical History Notes: Manager Of Broadcast Content: Dr. Monaco Past Medical History 1. Hypertension. 2. Hyperlipidemia. 3. Atrial fib, on anticoagulation. 4. Coronary artery disease with [place] in 1990 in which he underwent PTCA, but did not have a stent at that time. 5. Tobacco abuse. 6. Peripheral vascular disease 7. Hernia Past Surgical History 1. Abdominal aortic aneurysm repair in 2003. 2. Angioplasty in 1990. 3. Tonsillectomy. 4. Kidney stone status post extraction on March [address] Bauman. 5. TURP. 6. Right breast cyst. 7. Skin cancer excision. 8. Left orchiectomy. 9. Unspecified vascular surgeries, bilateral lower extremities (11/2016) Family History Noncontributory Smoking History Light Tobacco Smoker Social History Other Social History: Good social support, Local resident Ambulatory Status Independent Review of Systems Full Review of Systems Constitutional: Denies: Chills, Fever Respiratory: Reports: Shortness of breath, Denies: Non-productive cough, Prod cough, bloody, Prod cough, brown, Prod cough, clear, Prod cough, green, Prod cough, white, Prod cough, yellow Cardiovascular: Reports: Edema, Denies: Chest pain GI: Denies: Diarrhea, Vomiting Musculoskeletal: Reports: Extremity swelling Complete sys rev & neg: except as marked. Physical Exam Vital Signs Vital Signs Date Time Temp Pulse Resp B/P Pulse Ox O2 Delivery O2 Flow Rate FiO2 03/04/17 17:10 76 11 151/90 97 Room Air 03/04/17 14:54 67 19 126/75 98 Room Air 03/04/17 14:14 73 19 140/88 98 Room Air 03/04/17 13:01 37.0 69 20 134/73 99 Room Air Initial VS: Reviewed Head / Eyes: Atraumatic, Normocephalic, PERRL ENT: Mucous membranes moist, Conjunctiva normal, No scleral icterus Neck: Supple, Non-tender, Full range of motion Abdomen / GI: Soft, Non-tender, No guarding, No rebound, No distention Extremities: Vascular intact, Neuro intact Skin: Warm, Dry, No cyanosis Neurologic: Alert, Oriented, Nonfocal Psychiatric: Mood/affect normal, Behavior normal, Normal thought content General/Constitutional: Awake, Alert, No acute distress, Well appearing, Cooperative Respiratory / Chest: Breath sounds = bilat, No respiratory distress Fine bibasilar crackles Cardiovascular: Heart rate NL, Heart sounds NL, No gallop, No murmurs, No rubs , Peripheral circulation NL, Pulses = bilaterally Heart Rate / Rhythm: Positive: Irregular rhythm Lower Extremity / Pelvis / MS: Neurologic intact, Vascular intact Trace lower extremity edema bilaterally Interpretation & Diagnostics Lab Results Interpretation Result Diagram: 03/04/17 1348 03/04/17 1348 Test 03/04/17 13:48 03/04/17 16:15 White Blood Count 9.0th/mm3 (3.8-10.1) Red Blood Count 4.73mil/mm3 (4.40-5.80) Hemoglobin 15.2g/dL (13.8-17.2) Hematocrit 46.7% (41.0-50.0) Mean Corpuscular Volume 98.7fL (81-100) Mean Corpuscular Hemoglobin 32.1pg (27.0-35.0) Mean Corpuscular Hemoglobin Concent 32.5% (32.0-37.0) Red Cell Distribution Width 14.5% (12.3-15.4) Platelet Count 184bil/L (150-400) Neutrophils (%) (Auto) 73.8% (40-74) Lymphocytes (%) (Auto) 13.6% (14-46) Monocytes (%) (Auto) 11.9% (4-12) Eosinophils (%) (Auto) 0.2% (0-5) Basophils (%) (Auto) 0.4% (0-3) Prothrombin Time 18.7sec (8.1-12.5) Prothromb Time International Ratio 1.73ratio D-Dimer 5.31mg/L FEU (<0.50) Sodium Level 141mEq/L (134-144) Potassium Level 3.9mEq/L (3.5-5.2) Chloride Level 104mEq/L (97-108) Carbon Dioxide Level 23mmol/L (18-29) Blood Urea Nitrogen 28mg/dL (8-27) Creatinine 1.28mg/dL (0.76-1.27) Estimat Glomerular Filtration Rate 57mL/min (>59) Glucose Level 83mg/dL (60-99) Calcium Level 9.9mg/dL (8.5-10.1) Magnesium Level 1.9mg/dL (1.6-2.6) Total Bilirubin 0.6mg/dL (0.0-1.2) Aspartate Amino Transf (AST/SGOT) 17U/L (0-50) Alanine Aminotransferase (ALT/SGPT) 11U/L (0-44) Alkaline Phosphatase 124U/L (25-160) Total Protein 6.9g/dL (6.4-8.4) Albumin 3.7g/dL (3.4-5.0) Hold Bruce Top Tube Received (Received) Troponin T 0.028ug/L (0.0-0.011) ECG Interpretation ECG Interpretation: Atrial fibrillation with a rate of 82 bpm PVC Q waves in II, III, aVR, and V1-V3 Unchanged from prior EKG Time: 13:50 Interpreted by: ED physician Re-Eval/Medical Decision Med Decision/Clinical Course 81-year-old male history of CAD, atrial fibrillation on Coumadin presenting with 7 by primary doctor for elevated troponins and d-dimer. He was found to be 5. Tone is mildly elevated by primary doctor. Patient reports chronic dyspnea for several months no chest pain. Denies cough. No acute EKG changes. Troponins were mildly elevated here 0.03 and repeat was decreased. He had no chest pain while he was here. His CT Angio chest was negative for PE and his ultrasound was negative for DVTs. Patient's oxygen was 99% on room air. He requested to go home. Cardiomegaly on x-ray. Possible CHF. Cannot rule out anginal equivalent though this has been chronic for several months and he reports it is constant therefore highly unlikely. Discussed with patient and requests to go home with follow-up with primary doctor. Return precautions skin. Source of Hx: Old records, Private physician Time of Eval: 14:25 Re-Evaluation/Progress Note: Discussed plan for workup with the patient. He understands and agrees with plan. All questions were addressed. The patient would prefer to go home but only if it is safe. Counseled Regarding: Diagnosis, Lab results Discharge & Departure Primary Impression: Shortness of breath Additional Impression: Edema Edema type: unspecified Qualified Code: R60.9 - Edema, unspecified Discharge Condition All VS Reviewed: Yes Condition: Stable Referrals: Denton Travis DO (PCP) Aramis Monaco MD Scribe Attestation Portions of this note were transcribed by Simona Denny. I, Dr. Kelly personally performed the history, physical exam and medical decision-making; I reviewed and confirmed the accuracy of the information in the transcribed note. Signed by: Ángel Sierra, 03/04/2017 at 1500. copies to: Aramis Monaco MD; Denton Travis Ben M MD Mar 04, 2017 13:37 Simona Denny Mar 04, 2017 13:40
[2017-03-04 14:03] LABS: BASOPHILS % (AUTO) 0.4 % (0-3); EOSINOPHILS % (AUTO) 0.2 % (0-5); MONOCYTES % (AUTO) 11.9 % (4-12); Mean Corpuscular Hemoglobin 32.1 pg (27.0-35.0); Mean Corpuscular Volume 98.7 fL (81-100); NEUTROPHILS % (AUTO) 73.8 % (40-74); Platelet Count 184 bil/L (150-400)
[2017-03-04 14:14] VITALS: BP 140/88; PULSE 73; RESP 19; O2SAT 98
[2017-03-04 14:32] LABS: INR 1.73 ratio
[2017-03-04 14:43] LABS: Magnesium 1.9 mg/dL (1.6-2.6)
[2017-03-04 14:45] LABS: TROPONIN T 0.036 ug/L (0.0-0.011)
[2017-03-04 14:46] LABS: D-Dimer 5.31 mg/L FEU (<0.50)
[2017-03-04 14:54] VITALS: BP 126/75; PULSE 67; RESP 19; O2SAT 98
--- NOTE | 2017-03-04 16:08 | DRSVH ---
PROCEDURE: CT ANGIO CHEST PULMONARY EMBOLISM ([id number]) INDICATIONS: dyspnea elevated ddimer TECHNIQUE: After the administration of intravenous contrast, 2 mm thick sections acquired from the pulmonary api ashleigh to the posterior costophrenic angles. 3-dimensional maximum intensity projection (MIP) coronal a nd sagittal reformats were then acquired through the thorax. For radiation dose reduction, the follo wing was used: automated exposure control, adjustment of mA and/or kV according to patient size. COMPARISON: , CT, CHEST WITH CONTRAST, 10/05/2011, 14:14. [facility], CT, CT CHEST ABD PELVIS W CON, 07/14/2016, 9:34. FINDINGS: Image quality: Excellent. Pulmonary arteries: Pulmonary arteries are normal in size, and demonstrate no intraluminal filling d efects to suggest central pulmonary embolism. Lungs and pleura: No definite focal consolidation. There is diffuse basilar dependent atelectasis and /or aspiration. Small right pleural effusion is seen. No pneumothorax. Central airways appear grossly patent. 5 mm nodule present in the right upper lobe image 10 series 5 which is new or possibly incre ased in size since the prior study dated 07/14/16. Mediastinum: There is massive cardiomegaly, without pericardial effusion. No mediastinal or hilar ad enopathy. Thoracic aorta is normal in caliber and enhancement. 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 Esophagus is normal in caliber, without hiatal hernia. Bones and chest wall: No suspicious bony lesions. Ribs and thoracic spine appear intact throughout. Thyroid gland negative. No axillary or supraclavicular adenopathy. Abdomen: Visualized upper abdominal solid organs appear normal in the early arterial phase of enhanc ement. IMPRESSION: No pulmonary embolism. Bibasilar dependent atelectasis and/or low-grade aspiration. Massive cardiomegaly Small right pleural effusion. 5 mm right upper lobe pulmonary nodule, technically indeterminate although possibly increased in size since the prior study as above. Recommend followup noncontrast chest CT in 6 months for further asse ssment to exclude early pulmonary metastatic disease/malignancy. Unchanged paraaortic/paraspinal lesion since 2011 as discussed above. Dictated by: Archie Ramhan M.D. on 03/04/2017 at 15:56 Approved by: Archie Rahman M.D. on 03/04/2017 at 16:07
--- NOTE | 2017-03-04 16:38 | DRSVH ---
PROCEDURE: X-RAY CHEST ONE VIEW, PORTABLE ([id number]) INDICATIONS: dyspnea TECHNIQUE: One view of the chest was acquired. COMPARISON: [facility], CR, XR CHEST 2VW, 12/23/2016, 9:38. [facility], CR, XR CHEST 2VW, 02/24/2017, 9:01. FINDINGS: Surgical changes and devices: None. Lungs and pleura: No pleural effusions or pneumothorax. Lungs are clear. Mediastinum: Mediastinal contours appear normal. Heart size is enlarged. Bones and chest wall: No suspicious bony lesions. Overlying soft tissues appear unremarkable. IMPRESSION: Stable cardiomegaly. No definite acute cardiopulmonary process. Specifically no pneumonia or pulmonary edema. Dictated by: Kingston Kelley RRA Interpreted: Arthur Alexander MD on 03/04/2017 at 14:10 Approved by: Arthur Alexander M.D. on 03/04/2017 at 16:36
--- NOTE | 2017-03-04 16:57 | DRSVH ---
PROCEDURE: US VENOUS LEG DUPLEX BILATERAL INDICATIONS: Leg swelling ddimer 5 r/o dvt TECHNIQUE: Real-time imaging, as well as color and pulse Doppler interrogation, were performed of the deep veins of both legs from the inguinal ligament to the popliteal fossa. COMPARISON: None. FINDINGS: The deep veins are normally compressible, and free of intraluminal thrombus. Color and pu lse Doppler demonstrate normal phasic intravascular flow. There is normal augmentation response to d istal compression maneuver. IMPRESSION: No deep venous thrombosis identified within either the left or right lower extremities. Dictated by: Kingston VILCHIS Interpreted: Saba Story MD on 03/04/2017 at 16:06 Approved by: Saba Story M.D. on 03/04/2017 at 16:55
[2017-03-04 17:10] VITALS: BP 151/90; PULSE 76; RESP 11; O2SAT 97
== END 2017-03-04 17:30 ==
LOC: SED 12:41
DX: R06.02 Shortness of breath (principal); R60.9 Edema, unspecified; I10 Essential (primary) hypertension; E78.5 Hyperlipidemia, unspecified; I25.10 Atherosclerotic heart disease of native coronary artery without angina pectoris; F17.200 Nicotine dependence, unspecified, uncomplicated; Z79.82 Long term (current) use of aspirin; Z79.01 Long term (current) use of anticoagulants; Z88.2 Allergy status to sulfonamides; I25.2 Old myocardial infarction
CPT/HCPCS: 36415; 71010; 71275; 80053; 83735; 84484; 85025; 85378; 85610; 93005; 93970; 99285; Q9967